=== PATIENT | female | born 1970 | race Caucasian/White ===

== ENCOUNTER 2021-07-09 08:19 | Outpatient (CLI) | payer MEDICARE, SELFPAY ==
--- NOTE | ~2021-07-09 | XR_ITS ---
EXAMINATION:XR cervical spine 4-5V DATE: 07/09/2021 08:44 INDICATION: Neck pain TECHNIQUE: AP, lateral, lateral swimmers and odontoid views of the cervical spine are provided. COMPARISON: None FINDINGS: Alignment is normal. There are changes of anterior fusion with interbody device placement f rom C4 through C6. There are changes of posterior fusion from C3 through C7. The odontoid is intact. No fracture is identified. The vertebral body heights are maintained. There is mild loss of intervert ebral disc space height at C3-4 and C6-7. Prevertebral soft tissues are normal. There is mild multile tri facet and uncovertebral joint osteoarthritis. IMPRESSION: 1. Changes of anterior and posterior fusion with mild cervical spondylosis. No acute findings identif ied. Reviewed, dictated and finalized at location A. ISH THINNER IMPRESSION: 1. Changes of anterior and posterior fusion with mild cervical spondylosis. No acute findings identified.
--- NOTE | ~2021-07-09 | XR_ITS ---
EXAMINATION: XR shoulder RT min 2V INDICATION: Right shoulder pain TECHNIQUE: Four views of the right shoulder are submitted. COMPARISON: None FINDINGS: Normal alignment. No fracture. There is moderate osteoarthritis of the acromioclavicular viral int and mild osteoarthritis of the glenohumeral joint. Partially imaged changes of cervical spinal fu eden are noted. Soft tissues are unremarkable. IMPRESSION: 1. Osteoarthritis without acute osseous abnormality. Reviewed, dictated and finalized at location A. TER MAN
--- NOTE | ~2021-07-09 | NM_ITS ---
EXAMINATION: NM vandana stress w perfusion DATE: 07/09/2021 10:58 INDICATION: Orthopnea TECHNIQUE: Rest images were obtained following intravenous administration of 9.6 mCi Tc99m tetrofosmi n (Myoview). The patient was infused intravenously with Lexiscan (Regadenoson). Then, 27.8 mCi Tc99m tetrofosmin (Myoview) was administered intravenously, and stress images were obtained. Data was recon structed into short axis and horizontal and vertical long axis SPECT images. Gated SPECT images were also obtained. COMPARISON: None. FINDINGS: There is no definite reversible or fixed perfusion abnormality to suggest ischemia or infar ction. There is normal left ventricular chamber size, wall motion and ejection fraction. Left ventr icular ejection fraction measures 66%. IMPRESSION: 1. Normal myocardial perfusion at rest and during stress. 2. Left ventricular ejection fraction measuring 66%. Reviewed, dictated and finalized at location A. CAL SURGICAL TECH
--- NOTE | 2021-07-09 08:25 | EST_ITS ---
Patient Info Name: Marixa Ghosh Age: 50 years : 1970 Gender: Female Ht: 63 in Wt: 215 lbs BSA: 2.13 m2 HR: 72 bpm BP: 106 / 73 mmHg Heart Rhythm: Sinus Rhythm Exam Date: 07/09/2021 9:42 AM Exam Location: [facility] Stress Patient Status: Outpatient Admit Date: 07/09/2021 Staff Ordering Physician: Elvia Beck Attending Provider: Mello Del Valle DO Exercise Technologist: Lexis Barboza CT Exercise Physician: Derrell Ndiaye DO Exam Type: CA stress vandana w NM Study Info Indications R06.01 - Orthopnea A regadenoson stress test was performed. Summary 1. 1. Negative lexiscan stress test for ischemic ST changes by ECG criteria. 2. 2. Stable hemodynamics throughout the test. 3. 3. Nuclear scan to follow and will be reported separately. Please correlate with it. 4. 4. Patient informed of the above results. Protocol: Lexiscan Stress ECG Details Stage: REST Duration (min): 1 min : 29 sec HR (bpm): 71 SBP (mmHg): 106 DBP (mmHg): 73 Stage: REST Duration (min): 13 min : 30 sec HR (bpm): 68 SBP (mmHg): 106 DBP (mmHg): 73 Stage: STAGE 1 Duration (min): 1 min : 0 sec HR (bpm): 77 SBP (mmHg): 107 DBP (mmHg): 66 Stage: RECOVERY Duration (min): 1 min : 0 sec HR (bpm): 84 SBP (mmHg): 107 DBP (mmHg): 66 Stage: RECOVERY Duration (min): 2 min : 0 sec HR (bpm): 85 SBP (mmHg): 107 DBP (mmHg): 66 Stage: RECOVERY Duration (min): 2 min : 57 sec HR (bpm): 82 SBP (mmHg): 104 DBP (mmHg): 66 Rest HR: 68 bpm Peak HR: 88 bpm Rest Sys BP: 106 mmHg Peak Sys BP: 107 mmHg Max Pred HR: 169 bpm % Max Pred HR: 52 % Target HR: 144 bpm Max RPP: 9,416 bpm*mmHg Termination Reason: Completed protocol Cardiac Symptoms: Shortness of breath Total Time: 1 min : 0 sec Rest [place] BP: 73 mmHg Peak [place] BP: 66 mmHg Total Dose: 0.4 mg Resting ECG Sinus rhythm, IRBBB, borderline T wave abnormality in ant/inf leads. Stress ECG No ST changes. Arrhythmias None. Report Signatures
[2021-07-09 12:11] LABS: Hemoglobin A1C 5.4 % (<5.7)
[2021-07-09 12:24] LABS: Alanine Aminotransferase 14 U/L (4-35); Albumin Level 4.4 g/dL (3.5-5.1); Alkaline Phosphatase 64 U/L (38-126); Anion Gap 5 mmol/L (8-16); Aspartate Amino Transferase 24 U/L (14-36); Bilirubin,Total 0.4 mg/dL (0.2-1.3); Blood Urea Nitrogen 13 mg/dL (7-17); Carbon Dioxide 26 mmol/L (22-30); Chloride 108 mmol/L (98-107); Cholesterol 214 mg/dL (0-200); Estimated Glomerular Filt Rate > 60; Glucose 105 mg/dL (65-110); HDL Direct 47 mg/dL; Potassium 4.1 mmol/L (3.4-5.0); Sodium 139 mmol/L (137-145); Triglycerides 167 mg/dL (<150)
[2021-07-09 12:35] LABS: LDL Cholesterol Direct 137 mg/dL
[2021-07-09 12:45] LABS: Vitamin D 25 Hydroxy 14.9 ng/mL
== END 2021-07-09 08:20 | disposition home or self-care (01) ==
PROVIDERS: Nurse Practitioner; PCP Internal Medicine; Visit Provider Internal Medicine
DX: E03.9 Hypothyroidism, unspecified (principal); E78.5 Hyperlipidemia, unspecified; R73.9 Hyperglycemia, unspecified; Z13.1 Encounter for screening for diabetes mellitus; R06.01 Orthopnea; Z13.21 Encounter for screening for nutritional disorder; Z98.1 Arthrodesis status; M47.892 Other spondylosis, cervical region; M19.011 Primary osteoarthritis, right shoulder
CPT/HCPCS: 36415; 72050; 73030; 78452; 80053; 80061; 82306; 83036; 84443; 93017; A9502; J2785

== ENCOUNTER 2021-08-19 00:08 | Day surgery (SDC) | payer MEDICARE, SELFPAY ==
[2021-08-11 13:02] VITALS: BMI 37.8
[2021-08-19 07:26] VITALS: BP 132/89; PULSE 94; RESP 17; O2SAT 96
[2021-08-19] MEDS: LACTATED RINGERS 1,000 ML 150 ML IV CONT (07:40)
--- NOTE | 2021-08-19 07:58 | WPDANESEPPF ---
Anes - Initial Pre Proc Eval Procedure: Operation Date: 08/19/21 08:30 Proposed Procedures p Colonoscopy - Javan Harvey MD Date/Time: 08/19/21 07:58 Surgeon: Javan Harvey MD Pre Op Diagnosis: melena Patient Data Age: 51 Gender: F Height: 1.6 m Weight: 93.8 kg Last Vital Signs Pulse 94 08/19/21 07:26 Resp 17 08/19/21 07:26 BP 132/89 08/19/21 07:26 Pulse Ox 96 08/19/21 07:26 Allergies Allergy/AdvReac Type Severity Reaction Status Date / Time No Known Allergies Allergy Verified 08/19/21 07:23 Home Medications Medication Instructions Recorded Confirmed Type alprazolam 0.25 mg tablet 0.25 mg PO DAILY PRN tablet 06/25/21 08/19/21 History buspirone 15 mg tablet 15 mg PO BID tablet 06/25/21 08/19/21 History fenofibrate 160 mg tablet 160 mg PO DAILY #30 tablet 06/25/21 08/19/21 Rx gabapentin 300 mg capsule 300 mg PO TID cap 06/25/21 08/19/21 History sertraline 100 mg tablet 100 mg PO DAILY tablet 06/25/21 08/19/21 History tizanidine 2 mg tablet 2 mg PO TID tablet 06/25/21 08/19/21 History trazodone 150 mg tablet 150 mg PO BID tablet 06/25/21 08/11/21 History levothyroxine 200 mcg tablet 200 mcg PO DAILY #60 tablet 07/10/21 08/19/21 Rx duloxetine 30 mg PO DAILY 08/11/21 08/19/21 History Patient hx anesthesia problems: none Family hx anesthesia problems: none Results Review: All pre-operative results and documents have been reviewed as part of the pre-operative evaluation. [facility] Past Medical History Medical History (Updated 06/25/21 @ 14:10 by RUDDY Farmer) Anxiety Headache Surgical History Surgical History (Updated 06/25/21 @ 13:43 by RUDDY Farmer) H/O neck surgery 2017 History of endometrial ablation 2011 History of excision of pilonidal cyst Hx of section 1999 Hx of cholecystectomy 1999 Family History Family History (Updated 06/25/21 @ 13:13 by Galilea Jones MA) Father Alcoh dep NEC/NOS, unspec Hypertension Cancer Mother Cancer Anxiety Thyroid disease Social History Social History (Updated 06/25/21 @ 13:08 by Galilea Jones MA) Social History: pt states she trying to quit smoking Smoking packs per day: 0.5 Smoking cigarettes per day: 10.0 Years smoked: 37 Smoking pack-years: 18.50 Smoking status: Current every day smoker Second hand tobacco smoke exposure: No Alcohol intake: never Alcohol use details: social Substance use: never Substance use type: marijuana Other substance usage details: medical marijuana Living arrangements: with family Gender identity (if verbalized by the patient): Female Spiritual care concerns: No Anes - Eval Final PreProcedure Day of Procedure 08/19/21 07:58 Patient weight: obese Heart: regular rate and rhythm Lungs: clear to auscultation Airway: Mallampati scale Neurological: alert and oriented Last oral intake: >/= 8 hours ASA classification: III Emergent: no Anesthetic plan: proceed Anesthesia type and monitoring: general GIVS and standard monitoring Results Review: All pre-operative results and documents have been reviewed as part of the pre-operative evaluation. Informed Consent: The patient's anesthetic plan and its attendant risks and benefits were discussed with the patient/family/POA. Questions were solicited and answers provided to the satisfaction of the patient/family/POA.
--- NOTE | 2021-08-19 08:06 | PM.HPGS ---
History of Present Illness History of Present Illness Consent: Risks, benefits, and alternatives have been discussed and questions answered. Patient agrees to proceed with procedure. Chief complaint: melena Narrative: Marixa Ghosh is a 51 year old female with constipation and intermittent blood in stool, had colonoscopy about 32 years ago for abdominal discomfort Review of Systems Constitutional: Constitutional: Denies headache(s) and Denies weakness Eyes: Eyes: Denies blurry vision ENT: Reports Normal hearing present, Denies headache(s) and Denies neck pain Cardiovascular: Cardiovascular: Denies chest pain and Denies dyspnea Respiratory: Respiratory: Denies dyspnea Gastrointestinal: Gastrointestinal: Reports no additional gastrointestinal complaints Genitourinary: Genitourinary: Denies dysuria Musculoskeletal: Musculoskeletal: Denies neck pain Integumentary/Breasts: Skin/Breast: Denies dry skin Neurologic: Reports Normal hearing present, Denies headache(s) and Denies weakness Psychiatric: Psychiatric: Denies anxiety Endocrine: Endocrine: Denies change in body appearance Hematologic/Lymphatic: Hematologic/Lymphatic: Denies easy bleeding Allergic/Immunologic: Allergic/Immunologic: Denies urticaria PMFSH Past Medical History Medical History (Updated 08/19/21 @ 08:07 by Javan Harvey MD) Anxiety Blood in stool Headache Surgical History Surgical History (Updated 06/25/21 @ 13:43 by Elvia Beck NP-C) H/O neck surgery 2017 History of endometrial ablation 2011 History of excision of pilonidal cyst Hx of section 1999 Hx of cholecystectomy 1999 Family History Family History (Updated 06/25/21 @ 13:13 by Galilea Jones MA) Father Alcoh dep NEC/NOS, unspec Hypertension Cancer Mother Cancer Anxiety Thyroid disease Social History Social History (Updated 06/25/21 @ 13:08 by Galilea Jones MA) Social History: pt states she trying to quit smoking Smoking packs per day: 0.5 Smoking cigarettes per day: 10.0 Years smoked: 37 Smoking pack-years: 18.50 Smoking status: Current every day smoker Second hand tobacco smoke exposure: No Alcohol intake: never Alcohol use details: social Substance use: never Substance use type: marijuana Other substance usage details: medical marijuana Living arrangements: with family Gender identity (if verbalized by the patient): Female Spiritual care concerns: No Meds Home Medications and Allergies Home Medications Medication Instructions Recorded Confirmed Type alprazolam 0.25 mg tablet 0.25 mg PO DAILY PRN tablet 06/25/21 08/19/21 History buspirone 15 mg tablet 15 mg PO BID tablet 06/25/21 08/19/21 History fenofibrate 160 mg tablet 160 mg PO DAILY #30 tablet 06/25/21 08/19/21 Rx gabapentin 300 mg capsule 300 mg PO TID cap 06/25/21 08/19/21 History sertraline 100 mg tablet 100 mg PO DAILY tablet 06/25/21 08/19/21 History tizanidine 2 mg tablet 2 mg PO TID tablet 06/25/21 08/19/21 History trazodone 150 mg tablet 150 mg PO BID tablet 06/25/21 08/11/21 History levothyroxine 200 mcg tablet 200 mcg PO DAILY #60 tablet 07/10/21 08/19/21 Rx duloxetine 30 mg PO DAILY 08/11/21 08/19/21 History Allergies Allergy/AdvReac Type Severity Reaction Status Date / Time No Known Allergies Allergy Verified 08/19/21 07:23 Vital Signs Vital Signs - 24 hr 08/19/21 07:26 Pulse Rate 94 Respiratory Rate 17 Blood Pressure 132/89 Pulse Oximetry 96 Exam Const: General: comfortable and no acute distress HENMT: General nose exam: Normal nares present Eyes: General: appearance normal, both eyes and all related structures Neck: Neck: no JVD Resp: Auscultation: clear to auscultation bilaterally Cardio: Rate: regular rate Rhythm: regular rhythm GI: Inspection: non-distended GI Palp: Yes Soft to palpation Skin: General skin exam: normal color Neur
[2021-08-19 08:24] VITALS: BP 97/49; PULSE 77; RESP 22; O2SAT 97
[2021-08-19 08:34] VITALS: BP 97/74; PULSE 71; RESP 20; O2SAT 97
[2021-08-19 08:44] VITALS: BP 113/80; PULSE 71; RESP 17; O2SAT 97
== END 2021-08-19 08:55 | disposition home or self-care (01) ==
PROVIDERS: PCP Internal Medicine; Visit Provider Internal Medicine Gastroenterology
PROC: 0DJD8ZZ Inspection of Lower Intestinal Tract, Via Natural or Artificial Opening Endoscopic (ICD-10-PCS; CPT 45378; principal; 2021-08-19 08:30)
DX: Z12.11 Encounter for screening for malignant neoplasm of colon (principal); K57.30 Diverticulosis of large intestine without perforation or abscess without bleeding; K64.8 Other hemorrhoids; F41.9 Anxiety disorder, unspecified; Z90.49 Acquired absence of other specified parts of digestive tract; F17.210 Nicotine dependence, cigarettes, uncomplicated; F12.90 Cannabis use, unspecified, uncomplicated; E03.9 Hypothyroidism, unspecified; K92.1 Melena; E66.9 Obesity, unspecified; Z68.36 Body mass index [BMI] 36.0-36.9, adult
CPT/HCPCS: G0121; J2704; J7120

== ENCOUNTER 2021-09-11 12:30 | Outpatient (RCR) | payer MEDICARE, SELFPAY ==
--- NOTE | 2021-07-23 13:54 | PTOPEVAL ---
PHYSICAL THERAPY INITIAL EVALUATION Thank you for referring Marixa Ghosh to [facility] The patient is scheduled to be seen for therapy? 2x/week for 4 weeks. Please review, sign, date and return this plan of care CARLOS. I agree with and certify that the following plan of care is medically necessary. Referring Physician Date Attending Provider: Elvia Beck, PACKAGING ENGINEER-C *PT Outpatient Evaluation Start: 07/23/21 Evaluation Information Diagnosis Cervicalgia Onset chronic Subjective Information Pt states she woke up randomly Query Text:As Reported By Patient/ one day in 2012 with a stiff Family neck and extreme neck pain, she went to the doctor who determined that she needed surgery. A surgery was done to place brackets and screws. This surgery was successful until around 2015 when she stated she woke up and knew something did not feel right. She went to the doctor again and they determined she needed surgery. They removed her brackets are replaced them with rods. She states the second surgery did not address her pain. She reports on average 1 headache a week. She states she spends all of her days in her recliner. Pt states her doctor wants to put her in a full trunk cast to allow her neck to heal. Pt states she has numbness down her L arm into her first 3 fingers. Pt states previous therapy has not worked in the past. Pt has had previous cortisone injections. Pt states the more she tries to use her neck, the more it hurts. After being awake and upright for a few hours, her head with start to shayla uncontrollably Pain Assessment Lower Neck Reported Pain Level 6 Pain Description Heavy,Numbness,Pressure Pain Radiation Left Arm Pain Frequency Chronic,Continuous Lowest Pain Intensity 5 Greatest Pain Intensity 7 Pain Aggravating Factors
--- NOTE | 2021-08-22 15:28 | PTOPEVAL ---
PHYSICAL THERAPY PROGRESS NOTE. Thank you for referring Marixa Ghosh to [facility].? The patient is scheduled to be seen for therapy? 2x/week for 4 weeks. Please review, sign, date and return this plan of care CARLOS. I agree with and certify that the following plan of care is medically necessary. Referring Physician Date Attending Provider: Elvia Beck, CLASSIFICATIONS OFFICER CC/CM-C Evaluation Information Diagnosis Cervicalgia Onset chronic Subjective Information Pt states her neck pain is Query Text:As Reported By Patient/ about the same. She also Family reports the frequency and intensity of her headaches has remained unchanged. Pt declines noticing any functional changes. She states her mental and cognitive ability to deal with and understand her pain has improved. Pain Assessment Self Report Pain Assessment Lower Neck Reported Pain Level 6 Greatest Pain Intensity 8 Cervical ROM Cervical Flexion (0-60) 14 active Cervical Extension (0-70) 16 active Cervical Lateral Flexion Right (0-50) 10 active Cervical Lateral Flexion Right (0-50) 20 passive Cervical Lateral Flexion Left (0-50) 16 active Cervical Lateral Flexion Left (0-50) 20 passive Cervical Rotation Right (0-90) 22 active Cervical Rotation Right (0-90) 30 passive Cervical Rotation Left (0-90) 25 active Cervical Rotation Left (0-90) 30 passive Cervical ROM 25% of Normal Cervical ROM Comments Muscle guard, mm spasm, and pain limit motion today. Lumbar ROM Lumbar Flexion Active [place] Lumbar Extension (0-40) 10 Lateral Flexion L lateral flexion 4 in above Query Text:Active Hands to: lateral knee joint line R lateral flexion 3 in above lateral knee joint line Lateral Rotation Right (0-45) 20 Lateral Rotation Left (0-45) 20 Lumbar ROM 25% of Normal Lumbar Comments Decreased thoracic/lumbar flexion forward flexion came from hip flexion Upper Extremity Range of Motion Right Shoulder Flexion - Active 78 Shoulder Abduction - Active 86 Left Shoulder Flexion - Active 92 Shoulder Abduction - Active 90 Upper Extremity Muscle Strength Testing Gross Upper Extremity Strength Comments B shoulders 4-/5 - can hold min resistance in available range, unequal AR
--- NOTE | 2021-08-27 09:18 | PCPTNOTE ---
Patient did not show up for scheduled appointment this date. Called the patient to follow up, she states her alarm did not go off this morning.
--- NOTE | 2021-09-03 14:26 | PCPTNOTE ---
Patient called & cancelled scheduled appointment this date due to sickness.
--- NOTE | 2021-09-15 14:35 | PCPTNOTE ---
Patient called & cancelled scheduled appointment this date due to not feeling well.
--- NOTE | 2021-09-19 12:28 | PCPTNOTE ---
Patient called & cancelled scheduled appointment this date due to having to go out of town. She states she will call back to reschedule.
--- NOTE | 2021-10-22 16:49 | PCPTNOTE ---
Attending Provider: Elvia Beck, RADHAC Patient:Marixa Ghosh Date of :1970 Patient called and cancelled her scheduled reevaluation for the third time. Patient has not returned for any further treatments since 09/11/2021, therefore she will be discharged at this time. Patient?s initial visit was on 07/23/2021 12:30 and she had a total of 12 visits. The goals have been partially met. Thank you for referring this patient to [facility]. Please review, sign, date and return this discharge summary CARLOS. I have been updated about the patient's current status and I agree with discharge from the above service at this time. Referring Physician Date
== END 2021-10-21 23:59 | disposition home or self-care (01) ==
LOC: ANHPT 12:30
PROVIDERS: PCP Internal Medicine; Visit Provider Nurse Practitioner
DX: M54.2 Cervicalgia (principal); G89.29 Other chronic pain
CPT/HCPCS: 97110; 97112; 97140; 97161; 97530

== ENCOUNTER 2021-11-26 09:50 | Outpatient (CLI) | payer MEDICARE, SELFPAY ==
[2021-11-26 11:39] LABS: Thyroid Stimulating Hormone < 0.015 uIU/mL (0.465-4.680)
== END 2021-11-26 09:51 | disposition home or self-care (01) ==
PROVIDERS: PCP Internal Medicine; Visit Provider Nurse Practitioner
DX: E03.9 Hypothyroidism, unspecified (principal)
CPT/HCPCS: 36415; 84443

== ENCOUNTER 2022-01-10 11:49 | Outpatient (CLI) | payer MEDICARE, SELFPAY ==
--- NOTE | ~2022-01-10 | MR_ITS ---
EXAMINATION: MR cervical spine wo con DATE: 01/10/2022 12:40 INDICATION: Neck pain. TECHNIQUE: Magnetic resonance imaging (MRI) of the cervical spine was performed without intravenous c ontrast. Sequences included sagittal T2-weighted FSE, sagittal T2-weighted FS FSE, sagittal T1-weight ed FSE, axial MERGE, and axial T2-weighted FSE. COMPARISON: Cervical spine MRI 04/09/2014, radiographs 07/09/2021 FINDINGS: Bone alignment is normal. There are changes of anterior fusion procedure from C4 to C6 with interbody bone graft and anterior plate and screws. There are changes of posterior fusion procedure from C3 to C7 with lateral mass screws from C3 to C5 and pedicle screws in C7. There are laminectomie s from C4 to C6. There is mildly decreased disc height at C3-C4 and C6-C7. The spinal cord signal int ensity is normal. The following disc levels are specifically discussed: C2-C3: The disc does not extend beyond the endplate margin. There is mild right uncovertebral joint o steoarthritis. There is mild bilateral facet joint osteoarthritis. There is mild right neural foramin al stenosis. There is no central canal stenosis. C3-C4: There is a central extrusion. There is mild bilateral uncovertebral joint osteoarthritis. Ther e is no facet joint hypertrophy. There is no neural foraminal stenosis. There is mild central canal s tenosis. C4-C5: There is no uncovertebral joint hypertrophy. There is no facet joint hypertrophy. There is no neural foraminal stenosis. There is no central canal stenosis. C5-C6: There is no uncovertebral joint hypertrophy. There is no facet joint hypertrophy. There is no neural foraminal stenosis. There is no central canal stenosis. C6-C7: The disc does not extend beyond the endplate margin. There is mild left uncovertebral joint hy pertrophy. There is mild right facet joint hypertrophy. There is mild bilateral neural foraminal sten osis. There is no central canal stenosis. C7-T1: The disc does not extend beyond the endplate margin. There is no uncovertebral joint osteoarth ritis. There is moderate bilateral facet joint osteoarthritis. There is mild bilateral neural foramin al stenosis. There is no central canal stenosis. IMPRESSION: 1. Mild cervical spondylosis. 2. Anterior fusion procedure from C4 to C6 and posterior fusion procedure from C3 to C7. Reviewed, dictated and finalized at location A.
== END 2022-01-10 11:50 | disposition home or self-care (01) ==
LOC: ANHIMG 12:01
PROVIDERS: PCP Internal Medicine; Visit Provider Internal Medicine
DX: M47.892 Other spondylosis, cervical region (principal); Z98.1 Arthrodesis status
CPT/HCPCS: 72141

== ENCOUNTER 2022-09-18 17:14 | Emergency (ER) | payer MEDICARE, SELFPAY ==
--- NOTE | ~2022-09-18 | XR_ITS ---
EXAM: XR hand RT min 3V DATE: 09/18/2022 17:53 HISTORY: dog bite, r/o fx/fb, BITE ACROSS METACARPAL AREA . COMPARISON: None available. FINDINGS: Normal mineralization. No fracture or dislocation. No lytic or blastic lesion. Joint space s are maintained. No erosion or periosteal change. Dorsal soft tissue irregularity. IMPRESSION: No acute osseous finding in the right hand. Reviewed, dictated and finalized at location K.
[2022-09-18 17:19] VITALS: BP 120/72; PULSE 99; RESP 20; TEMP 36.1; O2SAT 100
--- NOTE | 2022-09-18 17:43 | ED.ANIMALBIT ---
HPI - Animal Bite General Chief Complaint: Animal Bite Stated Complaint: dog bite Time Seen by Provider: 09/18/22 17:38 Source: patient Mode of arrival: ambulatory Limitations: no limitations History of Present Illness HPI narrative: Patient is a 52-year-old female who presents to the ED with report of a dog bite to her right hand. Patient reports she was bit by one of her female dogs today around 4 PM in her right hand. Her dogs are up-to-date on vaccines, rabies up-to-date. She sustained several lacerations and puncture wounds to her right dorsal hand. Complains of severe pain to her right hand. Maintains range of motion. Denies numbness or tingling. Patient unsure of tetanus status. Related Data Home Medications Medication Instructions Recorded Confirmed buspirone 15 mg tablet 15 mg PO BID 06/25/21 07/13/22 sertraline 100 mg tablet 100 mg PO DAILY 06/25/21 07/13/22 duloxetine 30 mg PO DAILY 08/11/21 07/13/22 duloxetine 60 mg capsule,delayed 60 mg PO DAILY 07/13/22 07/13/22 release Allergies Allergy/AdvReac Type Severity Reaction Status Date / Time No Known Allergies Allergy Verified 09/18/22 18:37 Review of Systems Review of Systems: CONSTITUTIONAL: Denies fever, chills, or sweats. SKIN: See HPI. MUSCULOSKELETAL: See HPI. NEUROLOGIC: Denies tingling, numbness, or weakness. All systems reviewed & are unremarkable except as noted in HPI and below PMFSH Past Medical History Medical History Anxiety Blood in stool Degenerative arthritis of cervical spine Depression Headache Hyperlipidemia Hypothyroidism Insomnia Peripheral neuropathy Surgical History Surgical History H/O neck surgery 2017 History of endometrial ablation 2011 History of excision of pilonidal cyst Hx of section 1999 Hx of cholecystectomy 1999 Family History Family History Father Alcoh dep NEC/NOS, unspec Hypertension Cancer Mother Cancer Anxiety Thyroid disease Social History Social History Social History: pt states she trying to quit smoking Smoking packs per day: 0.5 Smoking cigarettes per day: 10.0 Years smoked: 37 Smoking pack-years: 18.50 Smoking status: Current every day smoker (less than a ppd) Tobacco type: cigarettes Second hand tobacco smoke exposure: No Alcohol intake: never Substance use: current Substance use type: marijuana Other substance usage details: medical marijuana Living arrangements: with family Gender identity (if verbalized by the patient): Female Spiritual care concerns: No Exam Narrative: GENERAL: Uncomfortable appearing, obese with BMI of 37, non-toxic, in mild acute distress d/t pain. HEAD: Normocephalic, atraumatic. NECK: Supple. No adenopathy, no masses. RESPIRATORY: Airway patent, respirations nonlabored. Clear to auscultation bilaterally, no rales, rhonchi, wheezing. CARDIOVASCULAR: Regular rate and rhythm without murmurs, rubs, or gallops. Radial pulses 2+ and equal bilaterally. MUSCULOSKELETAL: Moves all extremities. Strength/ROM intact without gross deformities. Full ROM of R hand and fingers, but with discomfort of this. Patient able to flex, extend, abduct with right thumb, opposition intact. No evidence for APL/EPB injury. Lateral puncture wound to mid dorsal R hand, overlying area of mid 3rd metacarpal. Superficial lateral laceration just inferior to puncture wound. Larger 3cm laceration, relatively superficial, overlying proximal thumb/2nd metacarpal, dorsal surface of hand. No obvious deeper injuries. SKIN: Warm, dry, normal color. No rashes. NEURO: A&O X3. Speech clear. Cranial nerves II-XII grossly intact. No ataxic movements. PSYCHIATRIC: Anxious, tearful. Normal interaction
[2022-09-18] MEDS: TETANUS,DIPHTHERIA,AC PERTUSSIS ADULT (0.5 ML) BOOSTRIX IM (17:54)
[2022-09-18] MEDS: MORPHINE SULFATE (*CRX) 4 MG/ML INJ IV PUSH (18:14)
[2022-09-18] MEDS: ONDANSETRON INJ 4 MG/2 ML VIAL IV PUSH (18:14)
[2022-09-18] MEDS: SODIUM CHLORIDE 0.9% IV 1,000 ML 999 ML IV CONT (18:14)
[2022-09-18] MEDS: AMPICILLIN SULB 3 GM/NS 100 ML 3 GM/100 ML VIAL IVPB (18:17)
== END 2022-09-18 21:21 | disposition home or self-care (01) ==
PROVIDERS: Emergency Provider Physician Assistant
DX: S61.451A Open bite of right hand, initial encounter (principal); Z23 Encounter for immunization; E78.5 Hyperlipidemia, unspecified; E03.9 Hypothyroidism, unspecified; G62.9 Polyneuropathy, unspecified; F41.9 Anxiety disorder, unspecified; F17.210 Nicotine dependence, cigarettes, uncomplicated; Z90.49 Acquired absence of other specified parts of digestive tract; W54.0XXA Bitten by dog, initial encounter
CPT/HCPCS: 12002; 73130; 90471; 90715; 96365; 96375; 99284; J0295; J2270; J2405; J7030

== ENCOUNTER 2023-02-16 10:56 | Outpatient (CLI) | payer MEDICARE, SELFPAY ==
[2023-02-16 11:57] LABS: Hematocrit 39.7 % (37.0-47.0); Hemoglobin 13.8 g/dL (12.0-15.0); Mean Corpuscular HGB Conc 34.8 g/dl (32-36); Mean Corpuscular Hemoglobin 31.9 pg (26-34); Mean Corpuscular Volume 91.9 fl (80-100); Mean Platelet Volume 9.9 fl (7.4-10.4); Platelet Count Result 229 k/mm3 (150-375); Red Blood Count 4.32 M/mm3 (4.2-5.4); Red Cell Distribution Width 11.9 % (11.5-14.5); White Blood Count 6.3 K/mm3 (4.5-10.0)
[2023-02-16 12:09] LABS: Alanine Aminotransferase 16 U/L (6-35); Albumin Level 4.1 g/dL (3.5-5.1); Alkaline Phosphatase 93 U/L (38-126); Anion Gap 5 mmol/L (8-16); Aspartate Amino Transferase 17 U/L (14-36); Bilirubin,Total 0.4 mg/dL (0.2-1.3); Blood Urea Nitrogen 12 mg/dL (7-17); Calcium 8.7 mg/dL (8.4-10.2); Carbon Dioxide 28 mmol/L (22-30); Chloride 107 mmol/L (98-107); Cholesterol 189 mg/dL (0-200); Estimated Glomerular Filt Rate > 60; Glucose 92 mg/dL (65-110); HDL Direct 44 mg/dL; Sodium 140 mmol/L (137-145); Triglycerides 466 mg/dL (<150)
[2023-02-16 12:22] LABS: LDL Cholesterol Direct 82 mg/dL
[2023-02-16 12:41] LABS: Thyroid Stimulating Hormone 0.053 uIU/mL (0.465-4.680)
[2023-02-16 12:42] LABS: Free T4 Free Thyroxine 1.44 ng/mL (0.78-2.19)
== END 2023-02-16 10:57 | disposition home or self-care (01) ==
PROVIDERS: PCP Family Medicine; Visit Provider Family Medicine
DX: G47.00 Insomnia, unspecified (principal); E03.9 Hypothyroidism, unspecified; E78.5 Hyperlipidemia, unspecified
CPT/HCPCS: 36415; 80053; 80061; 84439; 84443; 85027

== ENCOUNTER 2023-06-03 10:57 | Outpatient (CLI) | payer MEDICARE, SELFPAY ==
--- NOTE | ~2023-06-03 | XR_ITS ---
XR thoracic spine 3V DATE: 06/03/2023 11:44 INDICATION: Neck pain. Previous surgery in 2017. TECHNIQUE: AP, lateral, swimmer views COMPARISON: None FINDINGS: Status post anterior and interbody spinal fusion at C4-6 and posterior spinal fusion at C3- 7. There is degenerative spurring throughout the thoracic spine. No fracture or dislocation or bone dest ruction is detected. The thoracic pedicles are intact. No paraspinal soft tissue thickening. IMPRESSION: Status post anterior and posterior cervical spine surgical fusion Degenerative spurring of the thoracic spine Reviewed, dictated and finalized at location L. VATING SUPERVISOR
--- NOTE | ~2023-06-03 | XR_ITS ---
EXAMINATION: XR hip BI 2V w AP pelvis DATE: 06/03/2023 11:43 INDICATION: Hip pain TECHNIQUE: AP view the pelvis and two views of each hip were obtained. COMPARISON: None. FINDINGS: Bone alignment is normal. There is no fracture. There is mild osteoarthritis of the hips. P hleboliths are noted in the pelvis. IMPRESSION: 1. Osteoarthritis of the hips. 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
--- NOTE | ~2023-06-03 | XR_ITS ---
XR lumbar spine 6V w bending DATE: 06/03/2023 11:43 INDICATION: Right low back pain. Postlaminectomy syndrome. TECHNIQUE: AP, lateral, coned lateral lumbosacral and bilateral oblique views COMPARISON: None FINDINGS: There is slight levoscoliosis. There is prominent degenerative spurring in the lower thoracic spine. The lumbar vertebrae are normally aligned. No spondylolysis or spondylolisthesis. There is severe degenerative disc disease with virtual obliteration of disc space and eburnation and degenerative spurring at L2-3. As mild degenerative disease at L1-2, L3-4. L4-5 and L5-S1 interspaces are well preserved. The sacroiliac joints are intact. Surgical clips, right upper quadrant, likely due to cholecystectomy. IMPRESSION: Severe degenerative disc disease at L2-3, mild degenerative disc disease at L1-2 and L3-4 Reviewed, dictated and finalized at location L. TRICIAN RESEARCH IMPRESSION: Severe degenerative disc disease at L2-3, mild degenerative disc di sease at L1-2 and L3-4
== END 2023-06-03 10:58 | disposition home or self-care (01) ==
PROVIDERS: PCP Family Medicine; Referring Provider Anesthesiology Pain Medicine; Visit Provider Family Medicine
DX: G47.00 Insomnia, unspecified (principal); M96.1 Postlaminectomy syndrome, not elsewhere classified; M47.893 Other spondylosis, cervicothoracic region; M54.6 Pain in thoracic spine; M16.0 Bilateral primary osteoarthritis of hip; Z98.1 Arthrodesis status
CPT/HCPCS: 36415; 72072; 72114; 73521; 84443

== ENCOUNTER 2023-06-28 10:40 | Outpatient (CLI) | payer MEDICARE, SELFPAY ==
--- NOTE | ~2023-06-28 | MM_ITS ---
EXAMINATION: MM screening kaden BI w lata HISTORY: Screening mammogram TECHNIQUE: Craniocaudal and mediolateral oblique 3-D tomosynthesis images were obtained and synthetic 2-D images were generated. CAD analysis was submitted and interpreted. COMPARISON: No prior mammogram is available for comparison at this institution. BREAST PARENCHYMAL COMPOSITION: There are scattered areas of fibroglandular density. FINDINGS: RIGHT BREAST: No suspicious mass, calcification, or architectural distortion are identified to sugges t malignancy. LEFT BREAST: An asymmetry is present in the middle third of the central breast on the craniocaudal vi ew. IMPRESSION: 1. Left breast asymmetry which may represent the patient's baseline however no comparison is currentl y available. 2. Comparison with prior mammograms is necessary. BI-RADS Category 0: Incomplete: Needs comparison with prior mammograms. Reviewed, dictated and finalized at location A. [employer] IMPRESSION: 1. Left breast asymmetry which may represent the patient's baseline however no comparison is currently available. 2. Comparison with prior mammograms is necessary. BI-RADS Category 0: Incomplete: Needs comparison with prior mammograms.
--- NOTE | ~2023-06-28 | MR_ITS ---
EXAMINATION: MR lumbar spine wo con DATE: 06/28/2023 12:00 INDICATION: Radiculopathy, lumbosacral region. Back pain. TECHNIQUE: Magnetic resonance imaging (MRI) of the lumbar spine was performed without intravenous con trast. Sequences included sagittal T2-weighted FSE, sagittal T2-weighted FS FSE, sagittal T1-weighted FSE, and axial T2-weighted FSE. COMPARISON: Lumbar spine radiographs 06/03/2023 FINDINGS: There is 4 degrees levocurvature of lumbar spine. There is 3 mm retrolisthesis of L2 on L3. Vertebral body heights are normal. There is severely decreased disc height at L2-L3 with endplate re modeling. The distal spinal cord signal intensity is normal. The conus medullaris is at T12-L1. The f ollowing disc levels are specifically discussed: L1-L2: There is a central protrusion. There is moderate bilateral facet joint osteoarthritis. There i s no neural foraminal stenosis. There is mild central canal stenosis. L2-L3: The disc is bulging and has an annular fissure. There is mild right and moderate left facet viral int osteoarthritis. There is moderate right and mild left neural foraminal stenosis. There is mild ce ntral canal stenosis. There is severe stenosis of right lateral recess. L3-L4: The disc is bulging. There is severe bilateral facet joint osteoarthritis. There is mild bilat eral neural foraminal stenosis. There is mild central canal stenosis. L4-L5: The disc does not extend beyond the endplate margin. There is severe bilateral facet joint ost eoarthritis. There is no neural foraminal stenosis. There is no central canal stenosis. L5-S1: There is a central protrusion. There is severe bilateral facet joint osteoarthritis. There is mild bilateral neural foraminal stenosis. There is mild central canal stenosis. IMPRESSION: 1. Severe lumbar spondylosis. Reviewed, dictated and finalized at location A. 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
== END 2023-06-28 10:41 | disposition home or self-care (01) ==
LOC: ANHIMG 10:43
PROVIDERS: PCP Family Medicine; Visit Provider Family Medicine
DX: Z12.31 Encounter for screening mammogram for malignant neoplasm of breast (principal); M47.27 Other spondylosis with radiculopathy, lumbosacral region; R92.8 Other abnormal and inconclusive findings on diagnostic imaging of breast
CPT/HCPCS: 72148; 77063; 77067

== ENCOUNTER 2023-07-06 06:42 | Day surgery (SDC) | payer MEDICARE, SELFPAY ==
--- NOTE | ~2023-07-06 | XR_ITS ---
EXAMINATION: XR fluoroscopy no charge INDICATION: Bilateral C2, C3, and C4 block TECHNIQUE: 333 intraoperative fluoroscopic images are submitted for review. Total fluoroscopic time w as 46.5 seconds. COMPARISON: None available FINDINGS: Fluoroscopic images demonstrate partially imaged anterior posterior fusion changes of the c ervical spine. There appear to be needles bilaterally in the C2-3, C3-4, and C4-5 facets. Please refe r to procedure note for full details. IMPRESSION: 1. Please refer to procedure note for full details. Reviewed, dictated and finalized at location L. GER RESEARCH
--- NOTE | 2023-07-06 06:17 | WPDHPUPDATE1 ---
History and Physical Update Update Date/Time: 07/06/23 06:17 History and Physical has been reviewed, including an updated exam of the patient. There are NO changes in the patient's condition. Risks, benefits, and alternatives have been discussed and questions answered. Patient agrees to proceed with procedure.
--- NOTE | 2023-07-06 06:18 | W.PM.PROC2 ---
Procedure Note - Detailed Date of Procedure 07/06/23 Pre-op Diagnosis cervical spondylosis, chronic cervicalgia Post-op Diagnosis Same Procedure Performed bilateral C2-3, C3, C4 diagnostic/prognostic medial branch blocks under fluoroscopic guidance with contrast control Surgeon David Dee MD Anesthesia Local Description of Procedure INFORMED CONSENT: Risks, benefits and alternatives to the procedure were discussed in detail with the patient who expressed explicit understanding and consent to proceed. Patient was informed verbally and in written form regarding the risks associated with the procedure including the low risk of serious infection, bleeding/bruising, allergic reaction, nerve or organ injury, paralysis, procedural site pain or discomfort, worsening pain and/or mobility, failure to treat and/or disfigurement. The patient expressed explicit understanding and consent to proceed. All materials required for the procedure were available prior to procedure start. Site and side was marked prior to procedure and confirmed in the presence of the patient. PROCEDURE IN DETAIL: The patient was brought to the procedural suite and placed in the left lateral decubitus position with head stabilized. Patient was made comfortable with use of pillows under the head/chest and between the knees and ankles. Skin overlying the injection site on the affected side(s) was prepared broadly with ChloraPrep applicator and draped in a sterile manner. Aseptic technique was used throughout. The endplates of the vertebral bodies at the site(s) of interest were aligned in the Lateral view. Image was optimized for visualization of the pars interarticularis at each target site. Local anesthesia was established by infiltration with approximately 5 mL of 1% lidocaine via a 1-1/2 inch 27- gauge needle. A 25-gauge 3.5 inch Quincke spinal needle was advanced until the needle tip contacted the periosteum of the pars interarticularis at the target site, right C2-3 peripheral branch. AP view was utilized to confirm the appropriate placement of the needle tip just lateral to the periosteum at the center point of the pars interarticularis. In the Lateral view, 0.25 mL of Omnipaque 300 contrast medium was injected after negative aspiration for CSF, blood or other bodily fluid, showing appropriate extra-articular spread of contrast without evidence of intravascular, foraminal or intrathecal placement. A 0.5 mL solution of 0.5% PF bupivacaine was injected after negative repeat aspiration. Appropriate spread of the injectate was confirmed with washout of previously injected contrast. No parasthesias were elicited. Needle was removed completely intact without difficulty. The same procedure was repeated for all additional intended levels/structures treated on the ipsilateral side, right C3, C4 medial branches with identical methodology modified to compensate for different location, with similar results and no evidence of complication. Patient tolerated this well. The same procedure was repeated for all additional intended levels/structures treated on the contralateral side, left C2-3, C3, C4 medial branches with identical methodology modified to compensate for different location, with similar results and no evidence of complication. Patient tolerated this well. Images were saved and documented in the patient chart. Patient's skin was cleaned and sterile bandage applied. The patient tolerated the procedure well. The patient was transported to the recovery area in stable condition where they were observed for an appropriate amount of time prior to discharge, without evidence of complication. Patient was instructed on the appropriate completion of a pain diary over the next 12-24 hours. The patient was instructed to avoid excessive activity for the next 48 hours, including climbing and frequent use of stairs. Showers only for 48 hours. They were instructed not to drive or operate heavy machinery fo
[2023-07-06 07:50] VITALS: BP 115/78; PULSE 91; RESP 20; TEMP 37.3; O2SAT 100
[2023-07-06 09:25] VITALS: BP 114/67; PULSE 80; RESP 9; O2SAT 98
[2023-07-06 09:35] VITALS: BP 105/55; PULSE 77; RESP 20; O2SAT 98
[2023-07-06 09:45] VITALS: BP 133/70; PULSE 73; RESP 15; O2SAT 97
[2023-07-06] MEDS: LIDOCAINE HCL 1% PF INJ 5 ML VIAL INFILTRATE (09:50)
[2023-07-06] MEDS: BUPivacaine HCL 0.5% 10 ML AMP INFILTRATE (09:50)
[2023-07-06 09:55] VITALS: BP 123/68; PULSE 75; RESP 20; O2SAT 100
== END 2023-07-06 10:22 | disposition home or self-care (01) ==
PROVIDERS: PCP Family Medicine; Visit Provider Anesthesiology Pain Medicine
PROC: (CPT 64490; principal; 2023-07-06 08:30)
DX: M47.812 Spondylosis without myelopathy or radiculopathy, cervical region (principal); M54.2 Cervicalgia
CPT/HCPCS: 64490 ×2; 99199

== ENCOUNTER 2023-07-29 11:14 | Outpatient (CLI) | payer MEDICARE, SELFPAY ==
--- NOTE | ~2023-07-29 | MM_ITS ---
EXAMINATION: MM diagnostic kaden LT w lata HISTORY: Asymmetries reported in middle third of central breast on screening craniocaudal view of Jun TECHNIQUE: Additional 3-D tomosynthesis images of the left breast were performed and synthetic 2-D im ages were generated. CAD analysis was submitted and interpreted. COMPARISON: June 28, 2023 bilateral screening mammogram FINDINGS: No suspicious mass, architectural distortion, malignant calcification, skin thickening or r etraction is evident. There is no mass or architectural distortion or other significant abnormality particularly at the are a of concern noted on the craniocaudal view of June 28, 2023. IMPRESSION: 1. No mammographic evidence of malignancy 2. Routine annual mammographic screening is recommended BI-RADS Category 1: Negative Reviewed, dictated and finalized at location A.
== END 2023-07-29 11:15 | disposition home or self-care (01) ==
PROVIDERS: PCP Family Medicine; Visit Provider Family Medicine
DX: R92.8 Other abnormal and inconclusive findings on diagnostic imaging of breast (principal)
CPT/HCPCS: 36415; 77061; 77065; 84443; G0279

== ENCOUNTER 2023-07-29 13:51 | Outpatient (CLI) | payer MEDICARE, SELFPAY | END 2023-07-29 13:52 | disposition home or self-care (01) | PROVIDERS: PCP Family Medicine; Visit Provider Family Medicine | DX: G47.00 Insomnia, unspecified (principal) | CPT/HCPCS: 36415; 84443 ==

== ENCOUNTER 2023-10-26 07:40 | Day surgery (SDC) | payer MEDICARE, SELFPAY ==
[2023-10-18 12:03] VITALS: BMI 35.5
[2023-10-26] VITALS (9 sets, daily range): BP systolic 92–119; BP diastolic 53–81; PULSE 62–92; RESP 12–16; TEMP 37.6; O2SAT 92–100
--- NOTE | ~2023-10-26 | XR_ITS ---
EXAMINATION: XR fluoroscopy no charge DATE: 10/26/2023 9:50 CDT INDICATION: TEMP PLAC THORALUMBAR EPI CATH . TECHNIQUE: 8 fluoroscopic images and one cine clip of the thoracal lumbar spine were obtained during temporary thoracolumbar epidural catheter placement, performed by David Dee MD. I was not pres ent during the procedure. Fluoroscopy exposure time was 12.4 seconds. Air Kerma 4.49 mGy. COMPARISON: None FINDINGS/IMPRESSION: Fluoroscopic documentation of temporary thoracolumbar epidural catheter placement. Please refer to th e operative note for complete procedural details . Reviewed, dictated and finalized at location K.
--- NOTE | 2023-10-26 09:31 | WPDHPUPDATE1 ---
History and Physical Update Update Date/Time: 10/26/23 09:31 History and Physical has been reviewed, including an updated exam of the patient. There are NO changes in the patient's condition. Risks, benefits, and alternatives have been discussed and questions answered. Patient agrees to proceed with procedure.
--- NOTE | 2023-10-26 09:38 | W.PM.PROC2 ---
Procedure Note - Detailed Date of Procedure 10/26/23 Pre-op Diagnosis Chronic Pain Syndrome, Postlaminectomy Syndrome Post-op Diagnosis Same Procedure Performed Rightward Lumbar Interlaminar Epidural Needle Placement at T12-L1 with Epidural Catheter Placement to T9-10 for Intermittent Epidural Bolus of Opioid Analgesic (Pump Trial) under Fluoroscopic Guidance with Contrast Control. Surgeon David Dee MD Anesthesia Local Description of Procedure INFORMED CONSENT: Risks, benefits and alternatives to the procedure were discussed in detail with the patient who expressed explicit understanding and consent to proceed. Patient was informed verbally and in written form regarding the risks associated with the procedure including the low risk of serious infection, bleeding/bruising, allergic reaction, nerve or organ injury, paralysis, procedural site pain or discomfort, worsening pain and/or mobility, failure to treat and/or disfigurement. The patient expressed explicit understanding and consent to proceed. All materials required for the procedure were available prior to procedure start. Site and side were marked prior to procedure and confirmed in the presence of the patient. PROCEDURE IN DETAIL: The patient was brought to the procedural suite and placed in the prone position. Patient was made comfortable with use of pillows under the head/chest, hips and ankles. Appropriate monitoring initiated. Skin overlying the injection site was prepared broadly with ChloraPrep applicator and draped in a sterile manner. Aseptic technique was employed throughout. The endplates of the vertebral body at the site of interest were aligned in the AP view. Slight caudal tilt and ipsilateral oblique angulation was utilized to optimize visualization of the targeted posterior intervertebral foramen (L1-2). Local anesthesia was established by infiltration with approximately 5 mL of 0.5% lidocaine via a 1-1/2 inch 27-gauge needle. An 18-gauge 4-inch Tuohy epidural needle was advanced intermittently until appropriate loss of resistance to air was identified via plastic loss of resistance syringe. Lateral view was used to confirm the appropriate positioning of the needle tip within the posterior epidural space. In the AP view, 2.0 mL of Omnipaque 300 contrast medium was injected after negative aspiration for CSF, blood or other bodily fluid, showing appropriate epidural spread of contrast without evidence of intravascular or intrathecal placement. A 20-gauge epidural catheter with was advanced to T9-10 disk space. Lateral view was utilized to confirm catheter placement in the posterior epidural space. After negative aspiration, 2.0 ml of the same contrast medium was injected showing appropriate epidurogram without evidence of intravascular or intrathecal placement. A 3.0ml test dose of 1.5% lidocaine with epinephrine was injected via the catheter and patient monitored for 2 minutes to assess for intrathecal placement. Blood Pressure, heart rate, lower extremity sensation and motor strength were tested and compared to baseline without significant change. 2 ml of a 1mg/ml aqueous solution of preservative free morphine was injected after negative repeat aspiration. Appropriate spread of the injectate was confirmed with washout of previously injected contrast. No parasthesias were elicited. Needle was removed over the catheter without difficulty. Images were saved and documented in the patient chart. Patient's skin was cleaned and sterile bandage applied. The patient tolerated the procedure well. The patient was transported to the recovery area in stable condition where they were observed and monitored (RR, HR, BP, O2 Sats, Pain level) for an appropriate amount of time prior to discharge, without evidence of complication. After approximately one hour, the patient was evaluated for neurologic deficit, pain relief and side effects with results as below. At the end of the same day trial, the catheter was
[2023-10-26] MEDS: LIDOCAINE HCL 1.5% 3 ML XX (09:58)
[2023-10-26] MEDS: LIDOCAINE HCL 1% PF INJ 5 ML VIAL INFILTRATE (10:08)
== END 2023-10-26 11:35 | disposition home or self-care (01) ==
PROVIDERS: PCP Family Medicine; Visit Provider Anesthesiology Pain Medicine
PROC: (CPT 62326; principal; 2023-10-26 09:00)
DX: G89.4 Chronic pain syndrome (principal); M96.1 Postlaminectomy syndrome, not elsewhere classified
CPT/HCPCS: 62326; 99199

== ENCOUNTER 2023-11-15 11:18 | Outpatient (CLI) | payer MEDICARE, SELFPAY ==
[2023-11-15 12:00] LABS: Hematocrit 42.5 % (37.0-47.0); Hemoglobin 14.1 g/dL (12.0-15.0); Mean Corpuscular HGB Conc 33.2 g/dl (32-36); Mean Corpuscular Hemoglobin 32.2 pg (26-34); Mean Platelet Volume 9.7 fl (7.4-10.4); Platelet Count Result 255 k/mm3 (150-375); Red Blood Count 4.38 M/mm3 (4.2-5.4); Red Cell Distribution Width 11.9 % (11.5-14.5); White Blood Count 7.1 K/mm3 (4.5-10.0)
[2023-11-15 12:51] LABS: Free T4 Free Thyroxine 1.03 ng/mL (0.78-2.19)
[2023-11-15 13:27] LABS: Alanine Aminotransferase 13 U/L (6-35); Albumin Level 4.2 g/dL (3.5-5.1); Alkaline Phosphatase 87 U/L (38-126); Anion Gap 5 mmol/L (4-12); Aspartate Amino Transferase 16 U/L (14-36); Bilirubin,Total 0.3 mg/dL (0.2-1.3); Blood Urea Nitrogen 15 mg/dL (7-17); Carbon Dioxide 25 mmol/L (22-30); Chloride 111 mmol/L (98-107); Estimated Glomerular Filt Rate 58; Glucose 94 mg/dL (65-110); Potassium 4.1 mmol/L (3.4-5.0); Sodium 141 mmol/L (137-145)
== END 2023-11-15 11:19 | disposition home or self-care (01) ==
PROVIDERS: PCP Family Medicine; Visit Provider Family Medicine
DX: E03.9 Hypothyroidism, unspecified (principal); E66.9 Obesity, unspecified; F32.A Depression, unspecified; F41.9 Anxiety disorder, unspecified; G47.00 Insomnia, unspecified; G62.9 Polyneuropathy, unspecified; G89.29 Other chronic pain; M54.2 Cervicalgia
CPT/HCPCS: 36415; 80053; 84439; 84443; 85027

== ENCOUNTER 2023-12-13 14:48 | Outpatient (CLI) | payer MEDICARE, SELFPAY ==
--- NOTE | ~2023-12-13 | US_ITS ---
EXAMINATION: US venous doppler LE RT DATE: 12/13/2023 15:30 INDICATION: Right lower limb pain, swelling, erythema and palpable lump or mass TECHNIQUE: Grayscale ultrasound images without and with compression and Doppler ultrasound images of the right lower extremity veins were obtained. COMPARISON: None. FINDINGS: The visualized portions of right common femoral vein, profunda (deep) femoral vein, femoral vein, pop liteal vein, peroneal trunk, posterior tibial veins, peroneal veins, gastrocnemius vein and greater s aphenous vein outflow are patent. IMPRESSION: 1. No deep venous thrombosis in the right lower limb. Reviewed, dictated and finalized at location A.
== END 2023-12-13 14:49 | disposition home or self-care (01) ==
LOC: ANHIMG 14:49
PROVIDERS: PCP Family Medicine; Visit Provider Nurse Practitioner Family
DX: S80.11XA Contusion of right lower leg, initial encounter (principal); I82.409 Acute embolism and thrombosis of unspecified deep veins of unspecified lower extremity; M79.89 Other specified soft tissue disorders; X58.XXXA Exposure to other specified factors, initial encounter
CPT/HCPCS: 93971

== ENCOUNTER 2023-12-21 15:11 | Outpatient (CLI) | payer MEDICARE, SELFPAY ==
--- NOTE | ~2023-12-21 | XR_ITS ---
EXAMINATION: XR chest 2V Exam Date/Time: 12/21/2023 16:30 CDT HISTORY: Z01.818 - Encounter for other preprocedural examination Comparison: None. RESULT: Lines, tubes, and devices: Partially visualized cervical fusion hardware. Lungs and pleura: Minimal linear scar/atelectasis in the peripheral left lower lung, otherwise clear . Cardiomediastinal silhouette: Stable. Other: No acute osseous or upper abdominal finding. IMPRESSION: No acute cardiopulmonary process. Reviewed, dictated and finalized at location K.
--- NOTE | 2023-12-21 15:51 | ECG_ITS ---
Test Date: 2023-12-21 16:00:36 Measurements Intervals [place] Rate: 95 P: 26 FL: 184 QRS: 52 QRSD: 75 T: 20 QT: 356 QTc: 449 Interpretive Statements SINUS RHYTHM WITH FREQUENT SUPRAVENTRICULAR PREMATURE COMPLEXES IN A BIGEMINAL PATTERN LOW QRS VOLTAGE IN PRECORDIAL LEADS [QRS DEFLECTION < 1.0 mV IN CHEST LEADS] SEPTAL MYOCARDIAL INFARCTION , OF INDETERMINATE AGE [40+ ms Q WAVE IN V1/V2] No previous ECG available for comparison Electronically Signed On 12-22-2023 17:02:59 CDT by Tessie Rey M.D.
[2023-12-21 16:02] LABS: Hematocrit 40.6 % (37.0-47.0); Hemoglobin 13.8 g/dL (12.0-15.0); Mean Corpuscular Hemoglobin 32.2 pg (26-34); Mean Corpuscular Volume 94.6 fl (80-100); Mean Platelet Volume 9.2 fl (7.4-10.4); Platelet Count Result 263 k/mm3 (150-375); Red Blood Count 4.29 M/mm3 (4.2-5.4); Red Cell Distribution Width 11.9 % (11.5-14.5); White Blood Count 9.1 K/mm3 (4.5-10.0)
[2023-12-21 16:15] LABS: Partial Thromboplastin Time 27.8 Seconds (22.3-36.8); Prothrombin Time 13.3 Seconds (11.1-14.7)
[2023-12-21 16:18] LABS: Anion Gap 7 mmol/L (4-12); Blood Urea Nitrogen 10 mg/dL (7-17); Carbon Dioxide 26 mmol/L (22-30); Chloride 105 mmol/L (98-107); Estimated Glomerular Filt Rate 58; Glucose 96 mg/dL (65-110); Potassium 4.1 mmol/L (3.4-5.0); Sodium 138 mmol/L (137-145)
== END 2023-12-21 15:12 | disposition home or self-care (01) ==
LOC: ANHLAB 15:30
PROVIDERS: PCP Family Medicine; Visit Provider Anesthesiology Pain Medicine
DX: D68.9 Coagulation defect, unspecified (principal); Z01.818 Encounter for other preprocedural examination
CPT/HCPCS: 36415; 71046; 80048; 85027; 85610; 85730; 93005

== ENCOUNTER 2023-12-28 05:53 | Day surgery (SDC) | payer MEDICARE, SELFPAY ==
[2023-12-08 08:38] VITALS: BMI 36.3
[2023-12-20 11:30] VITALS: BMI 35.9
[2023-12-28] VITALS (12 sets, daily range): BP systolic 86–145; BP diastolic 44–106; PULSE 75–90; RESP 14–20; TEMP 36.7–37.2; O2SAT 92–100; BMI 36.3
--- NOTE | ~2023-12-28 | XR_ITS ---
EXAMINATION: XR fluoroscopy no charge DATE: 12/28/2023 7:25 CDT INDICATION: PERMANENT PAIN PUMP PLACEMENT . TECHNIQUE: 6 fluoroscopic images and multiple cine clips of the thoracic spine were obtained during p ermanent pain pump placement, performed by David Dee MD. I was not present during the procedur e. Fluoroscopy exposure time was 452.0 seconds. Air Kerma 338.67 mGy. COMPARISON: None FINDINGS/IMPRESSION: Fluoroscopic documentation of permanent pain pump placement. Please refer to the operative note for c omplete procedural details. This examination was referred to radiation safety and occupational health manager, Dr. Marlon Guidry. Reviewed, dictated and finalized at location K.
--- NOTE | 2023-12-28 05:11 | PM.HPGS ---
History of Present Illness History of Present Illness Consent: Risks, benefits, and alternatives have been discussed and questions answered. Patient agrees to proceed with procedure. Chief complaint: Chronic Pain Syndrome, Multifocal OA, Dorsalgia Narrative: Marixa Ghosh is a 53 year old female with chronic, recalcitrant and disabling chronic pain secondary to degenerative osteoarthritis, lumbosacral spondylosis, cervical spondylosis and lumbar spinal stenosis with neurogenic claudication with failure to respond to aggressive conservative measures including PT, oral and topical analgesics, opioid and nonopioid analgesics, rest, time and activity/behavioral modification over the past 1-2 years and has had successful trial of bolus dose neuraxial opioids who presents for permanent placement of Medtronic SynchroMed III 20 mL intrathecal pain pump and catheter under fluoroscopic guidance. Review of Systems Review of Systems: Patient denies any new infectious, allergic, cardiopulmonary, neurologic or constitutional symptoms or changes in activity tolerance or exercise capacity including new or progressive SOB/EVANGELISTA, peripheral edema, productive cough, dysuria, nausea/vomiting, diarrhea, weight change, fevers/chills/night sweats, new or progressive neurologic deficit, cognitive or mood changes since last seen, except as documented in the HPI. All systems reviewed & are unremarkable except as noted in HPI and below PMFSH Past Medical History Medical History Anxiety Blood in stool Degenerative arthritis of cervical spine Depression Headache Hyperlipidemia Hypothyroidism Insomnia Peripheral neuropathy Surgical History Surgical History H/O neck surgery 2017 History of endometrial ablation 2011 History of excision of pilonidal cyst Hx of section 1999 Hx of cholecystectomy 1999 Family History Family History Father Alcoh dep NEC/NOS, unspec Hypertension Cancer Mother Cancer Anxiety Thyroid disease Social History Social History Social History: pt states she trying to quit smoking Smoking packs per day: 1 Smoking cigarettes per day: 20.0 Years smoked: 30 Smoking pack-years: 30.00 Smoking status: Current every day smoker Tobacco type: cigarettes Second hand tobacco smoke exposure: Yes Alcohol intake: current Substance use: current Substance use type: marijuana Other substance usage details: Daily Do You Feel Safe in your Home?: Yes Lack of Transportation: No Lack of Food: Never True Current Housing: I Have Housing Concerned About Future Housing: No Difficulty Paying Gas/Electric Bills: No Difficulty Paying for Meds: YES Currently Unemployed: No Education: High School Diploma/GED Difficulty w/ Childcare or Family Care: No Living arrangements: with family Gender identity (if verbalized by the patient): Female Spiritual care concerns: No Meds Home Medications and Allergies Home Medications Medication Instructions Recorded Confirmed Type buspirone 15 mg tablet 15 mg PO BID 06/25/21 12/20/23 History duloxetine 30 mg PO DAILY 08/11/21 12/20/23 History duloxetine 60 mg capsule,delayed 60 mg PO DAILY 07/13/22 12/20/23 History release bupropion HCl 300 mg 24 hr tablet, 300 mg PO QAM 02/16/23 12/20/23 History extended release quetiapine 300 mg tablet 300 mg PO QHS 02/16/23 12/20/23 History trazodone 50 mg tablet 50 mg PO QHS PRN Insomnia 04/20/23 12/08/23 History gabapentin 300 mg capsule 900 mg PO TID #810 caps 06/25/23 12/20/23 Rx diclofenac sodium 75 mg 75 mg PO BID #60 tabs 09/20/23 12/20/23 Rx tablet,delayed release cyclobenzaprine 10 mg tablet 10 mg PO TID muscle spasm 11/02/23 12/20/23 History topirama
--- NOTE | 2023-12-28 05:16 | WPDHPUPDATE1 ---
History and Physical Update Update Date/Time: 12/28/23 05:16 History and Physical has been reviewed, including an updated exam of the patient. There are NO changes in the patient's condition. Risks, benefits, and alternatives have been discussed and questions answered. Patient agrees to proceed with procedure.
--- NOTE | 2023-12-28 05:28 | W.PM.PROC2 ---
Procedure Note - Detailed Date of Procedure 12/28/23 Pre-op Diagnosis Chronic Pain Syndrome, Multifocal OA, Dorsalgia, Cervicalgia, Postlaminectomy syndrome Post-op Diagnosis Same Procedure Performed Permanent implantation of Medtronic SynchroMed III 20 mL intrathecal pain pump and percutaneous, tunneled Ascenda intrathecal catheter for chronic targeted drug delivery under fluoroscopic guidance. Surgeon David Dee MD Anesthesia General ([General anesthesia] in the [left lateral decubitus] position [via ETT] with local anesthetic infiltration. ) Description of Procedure INFORMED CONSENT, EDUCATION AND PREPARATION: Procedure was discussed in detail with the patient at a previous visit and at the time of surgery. The risks, benefits, and alternatives to the procedure, including doing nothing, were discussed in detail with the patient, who expressed explicit understanding and consent to proceed. Specific risks discussed with the patient included, but were not limited to the risk of serious local or systemic infection, major or minor bleeding/bruising, allergic reaction to medications or materials, inadvertent lung or other organ injury, inadvertent nerve or spinal cord injury resulting in, amongst other changes, increased pain, weakness, numbness or loss of bowel or bladder control, programming or technical error leading to unintentional overdose or underdose of medications resulting in sedation, respiratory depression, hypoxic brain injury and/or or major or minor withdrawal symptoms, device malfunction and inability to treat pain, device migration or malfunction resulting in the need for repeat or additional surgery, acute or chronic/persistent CSF leak and post-dural puncture headache, eye or dental injury, joint, nerve, spine or soft tissue injury/pain related to positioning, heart attack, hemorrhagic or ischemic stroke, seizure, coma and . Patient understands these risks and agrees that the opportunity for benefit outweighs the potential risk of harm. Informed Consent form was read, reviewed and signed. All pertinent questions were asked and answered to the patient's satisfaction. Surgical site was pre-treated with chlorhexidine wipes. All materials required for implantation were available and site and side of implant were marked prior to procedure start. Appropriate timeout was conducted prior to incision. PROCEDURE IN DETAIL: The patient indicated their completion of a 4% chlorhexidine shower at home and surgical site was pre-treated with chlorhexidine wipes in pre-operative holding. IV prophylactic antibiotics were initiated in holding. The patient was brought to the operative suite and placed in the supine position. ASA standard monitors were attached. General anesthesia was initiated via LMA without difficulty or event. The patient's eyes were protected. The patient was transitioned into the left lateral decubitus position. Joints were placed in neutral position, pressure points were padded and breast/genitals were evaluated and protected as appropriate. Skin overlying the planned incision sites were marked with sterile skin marker. Surgical site was prepared in the typical sterile fashion with 67% isopropyl alcohol pre-treatment and Chloraprep solution which was allowed to dry completely for greater than 3 minutes. The patient was then draped in a typical sterile fashion. Aseptic technique was utilized throughout. In the AP view relative to the patient, T12-L1 interspace was identified. Skin overlying the needle entry site was anesthetized with approximately 10 mL of a 1:1 admixture of 0.5% preservative-free bupivacaine with epinephrine and 2.0% preservative-free lidocaine with epinephrine via a 27-gauge needle after negative aspiration. Anesthesia was extended to the vertebral lamina at the level of interest through the injection of an additional 5 mL of the above local anesthetic admixture via a 22-gauge Quincke spinal needle after
--- NOTE | 2023-12-28 07:08 | WPDANESEPPF ---
Anes - Initial Pre Proc Eval Procedure: Operation Date: 12/28/23 07:30 Proposed Procedures p Permanent Placement Percutaneous Intrathecal Ascenda Catheter and Medtronic SynchroMed III Intrathecal Pain Pump under Fluoroscopic Guidance - David Dee MD Date/Time: 12/28/23 07:08 Surgeon: David Dee MD Pre Op Diagnosis: Chronic Pain Syndrome, Multifocal OA, Dorsalgia Patient Data Age: 53 Gender: F Height: 1.6 m Weight: 93 kg Last Vital Signs Temp 37.2 C 12/28/23 06:31 Pulse 84 12/28/23 06:31 Resp 20 12/28/23 06:31 BP 100/62 12/28/23 06:31 Pulse Ox 99 12/28/23 06:31 O2 Del Method Room Air 12/28/23 06:31 Allergies Allergy/AdvReac Type Severity Reaction Status Date / Time morphine Allergy Unknown Itching Verified 12/28/23 06:17 Home Medications Medication Instructions Recorded Confirmed Type buspirone 15 mg tablet 15 mg PO BID 06/25/21 12/28/23 History duloxetine 30 mg PO DAILY 08/11/21 12/28/23 History duloxetine 60 mg capsule,delayed 60 mg PO DAILY 07/13/22 12/28/23 History release bupropion HCl 300 mg 24 hr tablet, 300 mg PO QAM 02/16/23 12/28/23 History extended release quetiapine 300 mg tablet 300 mg PO QHS 02/16/23 12/28/23 History trazodone 50 mg tablet 50 mg PO QHS PRN Insomnia 04/20/23 12/28/23 History gabapentin 300 mg capsule 900 mg PO TID #810 caps 06/25/23 12/28/23 Rx diclofenac sodium 75 mg 75 mg PO BID #60 tabs 09/20/23 12/28/23 Rx tablet,delayed release cyclobenzaprine 10 mg tablet 10 mg PO TID muscle spasm 11/02/23 12/28/23 History topiramate 25 mg tablet 25 mg PO DAILY #90 tabs 11/02/23 12/28/23 Rx phentermine 37.5 mg capsule 37.5 mg PO DAILY #30 caps 11/30/23 12/28/23 Rx levothyroxine 150 mcg tablet 150 mcg PO DAILY 12/20/23 12/28/23 History (Synthroid) hydrocodone 5 mg-acetaminophen 325 1 tablet PO Q8H PRN pain 7 days 12/28/23 Rx mg tablet #20 tabs Patient hx anesthesia problems: none Family hx anesthesia problems: none Results Review: All pre-operative results and documents have been reviewed as part of the pre-operative evaluation. [facility] Past Medical History Medical History Anxiety Blood in stool Degenerative arthritis of cervical spine Depression Headache Hyperlipidemia Hypothyroidism Insomnia Peripheral neuropathy Surgical History Surgical History H/O neck surgery 2017 History of endometrial ablation 2011 History of excision of pilonidal cyst Hx of section 1999 Hx of cholecystectomy 1999 Family History Family History Father Alcoh dep NEC/NOS, unspec Hypertension Cancer Mother Cancer Anxiety Thyroid disease Social History Social History Social History: pt states she trying to quit smoking Smoking packs per day: 1 Smoking cigarettes per day: 20.0 Years smoked: 30 Smoking pack-years: 30.00 Smoking status: Current every day smoker Tobacco type: cigarettes Second hand tobacco smoke exposure: Yes Alcohol intake: current Substance use: current Substance use type: marijuana Other substance usage details: Daily Do You Feel Safe in your Home?: Yes Lack of Transportation: No Lack of Food: Never True Current Housing: I Have Housing Concerned About Future Housing: No Difficulty Paying Gas/Electric Bills: No Difficulty Paying for Meds: YES Currently Unemployed: No Education: High School Diploma/GED Difficulty w/ Childcare or Family Care: No Living arrangements: with family Gender identity (if verbalized by the patient): Female Spiritual care concerns: No Anes - Eval Final PreProcedure Day of Procedure 12/28/23 07:08 Patient weight: obese Heart: regular rate and rhythm Lungs: clear to auscultation Airway: [place]ampat
--- NOTE | 2023-12-28 07:09 | SUR.PREOP ---
[employer] REP IN PREOP ROOM WITH PT AND SPOUSE
[2023-12-28] MEDS: LACTATED RINGERS 1,000 ML 30 ML IV CONT ×2 (07:30→10:22)
[2023-12-28] MEDS: ceFAZolin SODIUM 2 GM/20 ML SW SYRINGE IV PUSH (07:32)
[2023-12-28] MEDS: IRRISEPT 450 ML IRRIGATION BOTTLE IRRIGATION (08:47)
--- NOTE | 2023-12-28 09:07 | SUR.OPER ---
Pharmacy RX# [id number] *ON IMPLANT LIST* Pain Medication placed in pain pump: PF Clonidine HCL 200mCg PF Bupivacaine HCI 5mg/ml PF Hydromorphone HCI 0.125mg/ml in 20ml PF NS
[2023-12-28] MEDS: VANCOMYCIN HCL 1,000 MG VIAL 1000 MG TOPICAL (09:22)
[2023-12-28] MEDS: BUPIVACAINE/EPINEPHRINE 0.5% 10 ML VIAL INFILTRATE (09:28)
[2023-12-28] MEDS: LIDOCAINE HCL 2% PF INJ 5 ML VIAL 10 ML INFILTRATE (09:28)
[2023-12-28] MEDS: fentaNYL CITRATE INJ (*CRX) 100 MCG/2 ML VIAL 25 MCG IV PUSH ×2 (10:24→10:51)
[2023-12-28] MEDS: oxyCODONE HCL (*CRX) 5 MG TAB IR PO (11:38)
--- NOTE | 2023-12-28 11:55 | SUR.PHASEII ---
Pt sleeping comfortably on stretcher- awakes when blood pressure machine starts- states pain a 8/9 and intolerable but then falls back asleep. patient request pain medication for way home- facility has 5mg oxycodone- pt states itching from last dose of Morphine--request the pain medication to be ordered. 1158-patient would like to dress and go home
== END 2023-12-28 12:39 | disposition home or self-care (01) ==
LOC: ASC 06:06
PROVIDERS: PCP Family Medicine; Visit Provider Anesthesiology Pain Medicine
PROC: (CPT 62362; principal; 2023-12-28 07:30)
DX: G89.4 Chronic pain syndrome (principal); M54.89 Other dorsalgia; M54.2 Cervicalgia; M96.1 Postlaminectomy syndrome, not elsewhere classified
CPT/HCPCS: 62362; 62350; 99199

== ENCOUNTER 2024-01-05 17:15 | Emergency (ER) | payer MEDICARE, SELFPAY ==
--- NOTE | 2024-01-05 17:55 | ED.EAR ---
HPI - Ear Problem General Stated complaint: Ear Pain Time Seen by Provider: 01/05/24 17:40 Source: patient Mode of arrival: ambulatory Limitations: no limitations History of Present Illness HPI Narrative: 53 yo F presents with c/o drainage from bilateral ears for 10 days. No pain. Muffled hearing L ear. Afebrile. Denies swimming. All systems reviewed and negative except as noted above. Related Data Home Medications Medication Instructions Recorded Confirmed buspirone 15 mg tablet 15 mg PO BID 06/25/21 12/28/23 duloxetine 30 mg PO DAILY 08/11/21 12/28/23 duloxetine 60 mg capsule,delayed 60 mg PO DAILY 07/13/22 12/28/23 release bupropion HCl 300 mg 24 hr tablet, 300 mg PO QAM 02/16/23 12/28/23 extended release quetiapine 300 mg tablet 300 mg PO QHS 02/16/23 12/28/23 trazodone 50 mg tablet 50 mg PO QHS PRN Insomnia 04/20/23 12/28/23 cyclobenzaprine 10 mg tablet 10 mg PO TID muscle spasm 11/02/23 12/28/23 levothyroxine 150 mcg tablet 150 mcg PO DAILY 12/20/23 12/28/23 (Synthroid) Allergies Allergy/AdvReac Type Severity Reaction Status Date / Time morphine Allergy Unknown Itching Verified 12/28/23 06:17 Review of Systems Review of Systems: All systems reviewed and negative except as noted below. bilateral ear drainage PMFSH Past Medical History Medical History Anxiety Blood in stool Degenerative arthritis of cervical spine Depression Headache Hyperlipidemia Hypothyroidism Insomnia Peripheral neuropathy Surgical History Surgical History H/O neck surgery 2017 History of endometrial ablation 2011 History of excision of pilonidal cyst Hx of section 1999 Hx of cholecystectomy 1999 Family History Family History Father Alcoh dep NEC/NOS, unspec Hypertension Cancer Mother Cancer Anxiety Thyroid disease Social History Social History Social History: pt states she trying to quit smoking Smoking packs per day: 1 Smoking cigarettes per day: 20.0 Years smoked: 30 Smoking pack-years: 30.00 Smoking status: Current every day smoker Tobacco type: cigarettes Second hand tobacco smoke exposure: Yes Alcohol intake: current Substance use: current Substance use type: marijuana Other substance usage details: Daily Do You Feel Safe in your Home?: Yes Lack of Transportation: No Lack of Food: Never True Current Housing: I Have Housing Concerned About Future Housing: No Difficulty Paying Gas/Electric Bills: No Difficulty Paying for Meds: YES Currently Unemployed: No Education: High School Diploma/GED Difficulty w/ Childcare or Family Care: No Living arrangements: with family Gender identity (if verbalized by the patient): Female Spiritual care concerns: No Comments past medical, family and social hx reviewed by [employer]PERVISOR Exam Const: General: cooperative, healthy appearing, comfortable, no acute distress, alert, awake and Physically active HENMT: Head: normal to inspection Ears: external ears normal, TM's normal bilaterally and Abnormal EAC present erythema bilateral and edema bilateral Resp: Effort & Inspection: normal respiratory effort and able to speak in complete sentences Cardio: Rate: regular rate Skin: General skin exam: normal color, no rashes or lesions noted, elasticity normal and turgor normal Neuro: General: oriented to person, oriented to place, oriented to time, patient oriented x3 and gait normal Extrem: General: normal to inspection Psych: Appearance: grossly normal and well kempt Course Course Level of Care: Express Care Visit Vital Signs Vital signs: reviewed Medical Decision Making MDM Narrative Medical decision making narrative: treating bilatearl otitis externa with abx
== END 2024-01-05 17:55 | disposition home or self-care (01) ==
PROVIDERS: Emergency Provider Nurse Practitioner Family; PCP Family Medicine
DX: H60.93 Unspecified otitis externa, bilateral (principal); F17.210 Nicotine dependence, cigarettes, uncomplicated; F12.90 Cannabis use, unspecified, uncomplicated; E78.5 Hyperlipidemia, unspecified; E03.9 Hypothyroidism, unspecified; G62.9 Polyneuropathy, unspecified; F41.9 Anxiety disorder, unspecified; F32.A Depression, unspecified
CPT/HCPCS: 99213; G0463

== ENCOUNTER 2024-11-23 07:46 | Outpatient (CLI) | payer MEDICARE, SELFPAY ==
--- NOTE | ~2024-11-23 | US_ITS ---
EXAMINATION TYPE: US breast RT limited COMPARISON: NONE REASON FOR STUDY: N64.59 - Other signs and symptoms in breast TECHNIQUE: Targeted sonographic evaluation of the right breast was performed. INTERPRETATION: There is an 8 mm anechoic cyst at the 9:00 position right breast, 7 cm from the nipple. There is an a dditional 8 mm cyst at the 9:00 position right breast, 5 cm the nipple. There is an additional 9 mm c yst at the 9:00 position right breast, 4 cm in the nipple. There is a septated cyst or cluster of cys ts at the 9:00 position right breast, 2 cm from nipple, measuring 7 mm in diameter. IMPRESSION: Multiple cystic masses as above, which is a septated cyst or cluster cysts. Consider six-month follow -up ultrasound to reassess given the mild complexity of this lesion. BI-RADS CATEGORY: BI-RADS 3: Probably benign. Six-month follow-up advised Reviewed, dictated and finalized at location . IMPRESSION: Multiple cystic masses as above, which is a septated cyst or cluster cysts. Con milk drying machine operator six-month follow-up ultrasound to reassess given the mild complexity of t his lesion. BI-RADS CATEGORY: BI-RADS 3: Probably benign. Six-month follow-up advised
--- OUTSIDE RECORDS SUMMARY | 2024-11-23 07:50 | XMS_ITS | Patient Health Record ---
Author Organization [facility] Payment Address [address] [place] [address] Care Team Providers Care Ux Designer Name Role Phone Luis Antonio Woods MD Primary Care Provider Terrell Brooks Unavailable [phone] Ellyn Castellanos Unavailable [phone] Allergies Allergen (clinical drug ingredient) Drug/Non Drug Allergy documented on EMR Reaction Allergy Type Onset Date Status morphine Morphine Unknown Drug Allergy Active Reason For Referral No Information Medications Medication SIG (Take, Route, Frequency, Duration) Notes Start Date End Date Status traZODone HCl 150 MG 1 tablet at bedtime Oral Once a day; Duration: 30 days rx send on 07/31/24 Active DULoxetine HCl 30 MG 1 capsule in the morning Orally Once a day; Duration: 30 days rx send on 07/31/24 Active buPROPion HCl ER (XL) 300 MG 1 tablet in the morning Orally Once a day; Duration: 30 days rx send on 07/31/24 Active Cyclobenzaprine HCl 10 MG TAKE 1 TABLET BY MOUTH THREE TIMES DAILY NEEDED FOR MUSCLE SPASM Oral; Duration: 30 Days Active Topiramate 25 MG 1 tablet Orally Once a day Active QUEtiapine Fumarate 400 MG 1 tablet every night Orally Once a day; Duration: 90 days rx send on 07/31/24 Active Diclofenac & Menthol-Camphor 75 & 3-3 MG & % as directed Combination Active DULoxetine HCl 60 MG 1 capsule Orally Once a day; Duration: 30 days rx send on 07/31/24 Active Synthroid 150 MCG 1 tablet in the morning on an empty stomach Orally Once a day Active busPIRone HCl 15 MG 1 tablet Oral Twice a day; Duration: 30 days rx send on 07/31/24 Active Gabapentin 300 MG 1 capsule Orally Once a day Active Immunizations Vaccine Route Administration Date Status Comme nts Pfizer Biontpic5 Covid-19 Vac cine 2nd dose Unknown 04/30/2021 Administered Elia Covid-19 Vaccine Unknown 07/21/2020 Administere d Social History Tobacco Use: Social History Observation Description Date Details (start date - stop date) Current Smoker NA - NA Sex Assigned At : Social History Observation Description Sex Assigned At Female Tobacco Use/Smoking Question Answer Notes Tobacco use: former smoker Tobacco Control (Standard) Question Answer Notes Tobacco use: Current smoker Section Notes: Tobacco use: Struggles With Nicotine Addiction Problems Problem Type SNOMED Code ICD Code Onset Dates Problem Status W/U Status Risk Notes Problem Severe recurrent major depression without psychotic features (17202087) Major depressive disorder, recurrent severe without 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) Active confirmed Problem Generalized anxiety disorder (12212308) Generalized anxiety disorder (F41.1) Active confirmed Problem Posttraumatic stress disorder (06122602) Post-traumatic stress disorder, chronic (F43.12) Active confirmed Problem Chronic pain syndrome (609458521) Chronic pain syndrome (G89.4) Active confirmed Vital Signs Heart Rate 73 /min 10/30/2024 Height-cm 160.02 cm 10/30/2024 Blood pressure diastolic 79 mm Hg 10/30/2024 Weight-kg 97.52 kg 10/30/2024 Height 63.00 in 10/30/2024 Blood pressure systolic 113 mm Hg 10/30/2024 Weight 215 lbs 10/30/2024 BMI 38.08 kg/m2 10/30/2024 Encounters Encounter Location Date Provider Diagnosis [facility] [employer] [address] [address] 12/01/2023 Terrell Krish Major depressive disorder, recurrent severe without psychotic features F33.2 ; Generalized anxiety disorder F41.1 ; Post-traumatic stress disorder, chronic F43.12 and Chronic pain syndrome G89.4 [facility] [employer] [address] [address] 02/03/2024 Terrell Krish Major depressive disorder, recurrent severe without psychotic features F33.2 ; Generalized anxiety disorder F41.1 ; Post-traumatic stress disorder, chronic F43.12 and Chronic pain syndrome G89.4 [facility] [employer] [address] [facility] [address] [place] [address] 05/03/2024 Terrell Krish Major depressive disorder, recurrent severe without psychotic features F33.2 ; Generalized anxiety disorder F41.1 ; Post-traumatic stress disorder, chronic F43.12 and Chronic pain syndrome G89.4 [facility] [employer] [address] [facility] [address] [place] [address] 07/31/2024 Terrell Krish Generalized anxiety disorder F41.1 ; Chronic pain syndrome G89.4 ; Major depressive disorder, recurrent severe without psychotic features F33.2 ; Post-traumatic stress disorder, chronic F43.12 ; Encounter for screening for depression Z13.31 ; Encounter for screening for cardiovascular disorders Z13.6 and Nicotine use Z72.0 [facility] [employer] [address] [facility] [address] [place] [address] 10/30/2024 Terrell Krish Major depressive disorder, recurrent severe without psychotic features F33.2 ; Chronic pain syndrome G89.4 ; Generalized anxiety disorder F41.1 ; Post-traumatic stress disorder, chronic F43.12 ; Encounter for screening for cardiovascular disorders Z13.6 ; Negative depression screening Z13.31 and Nicotine use Z72.0 [facility] [employer] [address] [address] 10/30/2024 Ellyn Jack Major depressive disorder, recurrent severe without psychotic features F33.2 ; Generalized anxiety disorder F41.1 and Post-traumatic stress disorder, chronic F43.12 Assessments Encounter Date Diagnosis (ICD Code) Assessment Notes Treatment Notes Treatment Clinical Notes Section Notes 05/03/2024 Major depressive disorder, recurrent severe without psychotic features (ICD-10 - F33.2) Depression and Anxiety - Plan: - Continue current medications: - Trazodone 150 mg - Bupropion XL - Duloxetine 30 mg and 60 mg - Quetiapine 400 mg at bedtime - Buspirone 15 mg twice a day - Change prescriptions to 90-day supply with 2 refills to potentially reduce costs. - Instruct patient to discuss with Addie about possible extra discount for 90-day prescriptions. - Encourage patient to maintain social support and engagement with family during holiday season. Family and Relationship Stress - Plan: - Encourage open communication between patient, Sharita Cm to address concerns and find solutions. - Recommend considering family therapy or counseling if tensions continue to escalate. Medication Management and Financial Concerns - Plan: - Explore options for prescription assistance programs or additional insurance coverage. - Encourage patient to discuss with pharmacy about potential discounts for 90-day prescriptions, particularly with [facility]. - Note: Patient receives two medications through a pump (specific medications unknown to patient). Follow-up - Plan: - Schedule follow-up appointment in 3 months to assess mental health status, medication management, and ongoing family or financial concerns. 05/03/2024 Generalized anxiety disorder (ICD-10 - F41.1) Depression and Anxiety - Plan: - Continue current medications: - Trazodone 150 mg - Bupropion XL - Duloxetine 30 mg and 60 mg - Quetiapine 400 mg at bedtime - Buspirone 15 mg twice a day - Change prescriptions to 90-day supply with 2 refills to potentially reduce costs. - Instruct patient to discuss with Addie about possible extra discount for 90-day prescriptions. - Encourage patient to maintain social support and engagement with family during holiday season. Family and Relationship Stress - Plan: - Encourage open communication between patient, Sharita Cm to address concerns and find solutions. - Recommend considering family therapy or counseling if tensions continue to escalate. Medication Management and Financial Concerns - Plan: - Explore options for prescription assistance programs or additional insurance coverage. - Encourage patient to discuss with pharmacy about potential discounts for 90-day prescriptions, particularly with [facility]. - Note: Patient receives two medications through a pump (specific medications unknown to patient). Follow-up - Plan: - Schedule follow-up appointment in 3 months to assess mental health status, medication management, and ongoing family or financial concerns. 07/31/2024 Generalized anxiety disorder (ICD-10 - F41.1) 10/30/2024 Major depressive disorder, recurrent severe without psychotic features (ICD-10 - F33.2) 10/30/2024 Generalized anxiety disorder (ICD-10 - F41.1) 10/30/2024 Major depressive disorder, recurrent severe without psychotic features (ICD-10 - F33.2) Patient experiences depression. Prescribed Bupropion XL for depression management. - Continue Bupropion XL 300 mg in the morning for depression. 10/30/2024 Chronic pain syndrome (ICD-10 - G89.4) 02/03/2024 Major depressive disorder, recurrent severe without psychotic features (ICD-10 - F33.2) Pain Management Post-Pain Pump Insertion - Assessment: Patient reports pain pump was inserted on the of last month and has been managing pain well. Patient mentions having her little terrell that goes everywhere with her. - Plan: No changes in the pain management plan are needed at this time. Postoperative Complications - Assessment: Patient experienced a series of complications, including upset stomach, dizziness, fever, and a protrusion in the back. Most issues have resolved with conservative management (icing, ibuprofen). The back protrusion was attributed to overstretching and overdoing activities. - Plan: Patient was advised to be cautious with movements to allow proper adherence of the leads. No further intervention is needed at this time, but the patient should continue to monitor for any new or worsening symptoms. Double Inner Ear Infection - Assessment: Patient was diagnosed with a double inner ear infection after experiencing liquid coming out of her ears. She initially feared it was related to spinal cord manipulation during the pain pump insertion. - Plan: No changes in the treatment plan are needed at this time. The patient should continue to monitor for any new or worsening symptoms and follow up with their primary care provider if needed. Depression - Assessment: Patient is currently on bupropion 300 mg once a day. - Plan: No changes in the medication are needed at this time. Continue to monitor the patient's mood and adjust the treatment plan as needed. Anxiety - Assessment: Patient is currently on duloxetine 90 mg and quetiapine 400 mg for anxiety management. - Plan: No changes in the medication are needed at this time. Continue to monitor the patient's anxiety levels and adjust the treatment plan as needed. Family Relationship Improvement - Assessment: Patient reports an improved relationship with her mother, mentioning they have been inseparable. The mother has shown gestures of affection, including gifting jewelry. - Plan: Encourage the patient to continue working on maintaining and strengthening family relationships. Follow-up - Plan: Schedule a follow-up appointment in three months. - Plan: Send prescriptions for bupropion 300 mg, duloxetine 90 mg, quetiapine 400 mg, and bosutinib 15 mg twice a day to [facility] for a 30-day supply with refills as needed. Patient prefers 30-day supply due to cost constraints and lack of prescription insurance. 12/01/2023 Major depressive disorder, recurrent severe without psychotic features (ICD-10 - F33.2) Anxiety and Stress Related to Family Dynamics - Assessment: Anxiety and stress related to family dynamics. - Plan: - Continue current medications: Bupropion XL 300 mg daily, Duloxetine 30 mg daily, and Duloxetine 60 mg daily. - Encourage setting boundaries and establishing a timeline for support with family members. - Consider family therapy or counseling to address communication and relationship issues. Depression - Assessment: Depression. - Plan: - Continue current medications: Bupropion XL 300 mg daily, Duloxetine 30 mg daily, and Duloxetine 60 mg daily. - Monitor for any changes in mood or worsening of depressive symptoms. - Encourage regular follow-up appointments to assess the effectiveness of the treatment plan. Insomnia - Assessment: Insomnia. - Plan: - Continue current medication: Trazodone 100 mg at night. - Encourage good sleep hygiene practices, such as maintaining a consistent sleep schedule and creating a relaxing bedtime routine. - Reassess the need for medication adjustments during follow-up appointments. Pain Management - Assessment: Pain management. - Plan: - Continue current medication: Baclofen 15 mg three times a day. - Encourage the patient to avoid lifting heavy objects, such as the baby, to prevent exacerbation of pain. - Consider referral to a physical therapist for pain management strategies and exercises. Elevated Blood Pressure - Assessment: Elevated blood pressure. - Plan: - Recommend discussing elevated blood pressure with the primary care physician. - Encourage regular monitoring of blood pressure and adherence to any prescribed medications. - Advise on lifestyle modifications, such as a healthy diet, regular exercise, and stress management techniques. Follow-up Appointment - Plan: Schedule a follow-up appointment in 1-2 months to monitor the patient's progress and reassess the treatment plan as needed. 12/01/2023 Generalized anxiety disorder (ICD-10 - F41.1) Anxiety and Stress Related to Family Dynamics - Assessment: Anxiety and stress related to family dynamics. - Plan: - Continue current medications: Bupropion XL 300 mg daily, Duloxetine 30 mg daily, and Duloxetine 60 mg daily. - Encourage setting boundaries and establishing a timeline for support with family members. - Consider family therapy or counseling to address communication and relationship issues. Depression - Assessment: Depression. - Plan: - Continue current medications: Bupropion XL 300 mg daily, Duloxetine 30 mg daily, and Duloxetine 60 mg daily. - Monitor for any changes in mood or worsening of depressive symptoms. - Encourage regular follow-up appointments to assess the effectiveness of the treatment plan. Insomnia - Assessment: Insomnia. - Plan: - Continue current medication: Trazodone 100 mg at night. - Encourage good sleep hygiene practices, such as maintaining a consistent sleep schedule and creating a relaxing bedtime routine. - Reassess the need for medication adjustments during follow-up appointments. Pain Management - Assessment: Pain management. - Plan: - Continue current medication: Baclofen 15 mg three times a day. - Encourage the patient to avoid lifting heavy objects, such as the baby, to prevent exacerbation of pain. - Consider referral to a physical therapist for pain management strategies and exercises. Elevated Blood Pressure - Assessment: Elevated blood pressure. - Plan: - Recommend discussing elevated blood pressure with the primary care physician. - Encourage regular monitoring of blood pressure and adherence to any prescribed medications. - Advise on lifestyle modifications, such as a healthy diet, regular exercise, and stress management techniques. Follow-up Appointment - Plan: Schedule a follow-up appointment in 1-2 months to monitor the patient's progress and reassess the treatment plan as needed. 02/03/2024 Generalized anxiety disorder (ICD-10 - F41.1) Pain Management Post-Pain Pump Insertion - Assessment: Patient reports pain pump was inserted on the of last month and has been managing pain well. Patient mentions having her little terrell that goes everywhere with her. - Plan: No changes in the pain management plan are needed at this time. Postoperative Complications - Assessment: Patient experienced a series of complications, including upset stomach, dizziness, fever, and a protrusion in the back. Most issues have resolved with conservative management (icing, ibuprofen). The back protrusion was attributed to overstretching and overdoing activities. - Plan: Patient was advised to be cautious with movements to allow proper adherence of the leads. No further intervention is needed at this time, but the patient should continue to monitor for any new or worsening symptoms. Double Inner Ear Infection - Assessment: Patient was diagnosed with a double inner ear infection after experiencing liquid coming out of her ears. She initially feared it was related to spinal cord manipulation during the pain pump insertion. - Plan: No changes in the treatment plan are needed at this time. The patient should continue to monitor for any new or worsening symptoms and follow up with their primary care provider if needed. Depression - Assessment: Patient is currently on bupropion 300 mg once a day. - Plan: No changes in the medication are needed at this time. Continue to monitor the patient's mood and adjust the treatment plan as needed. Anxiety - Assessment: Patient is currently on duloxetine 90 mg and quetiapine 400 mg for anxiety management. - Plan: No changes in the medication are needed at this time. Continue to monitor the patient's anxiety levels and adjust the treatment plan as needed. Family Relationship Improvement - Assessment: Patient reports an improved relationship with her mother, mentioning they have been inseparable. The mother has shown gestures of affection, including gifting jewelry. - Plan: Encourage the patient to continue working on maintaining and strengthening family relationships. Follow-up - Plan: Schedule a follow-up appointment in three months. - Plan: Send prescriptions for bupropion 300 mg, duloxetine 90 mg, quetiapine 400 mg, and bosutinib 15 mg twice a day to [facility] pharmacy for a 30-day supply with refills as needed. Patient prefers 30-day supply due to cost constraints and lack of prescription insurance. 10/30/2024 Generalized anxiety disorder (ICD-10 - F41.1) Patient experiences anxiety. Prescribed Buspar for anxiety management. - Continue Buspar 15 mg twice a day for anxiety. 10/30/2024 Post-traumatic stress disorder, chronic (ICD-10 - F43.12) 07/31/2024 Chronic pain syndrome (ICD-10 - G89.4) 05/03/2024 Post-traumatic stress disorder, chronic (ICD-10 - F43.12) Depression and Anxiety - Plan: - Continue current medications: - Trazodone 150 mg - Bupropion XL - Duloxetine 30 mg and 60 mg - Quetiapine 400 mg at bedtime - Buspirone 15 mg twice a day - Change prescriptions to 90-day supply with 2 refills to potentially reduce costs. - Instruct patient to discuss with Addie about possible extra discount for 90-day prescriptions. - Encourage patient to maintain social support and engagement with family during holiday season. Family and Relationship Stress - Plan: - Encourage open communication between patient, Tio, and Jovita to address concerns and find solutions. - Recommend considering family therapy or counseling if tensions continue to escalate. Medication Management and Financial Concerns - Plan: - Explore options for prescription assistance programs or additional insurance coverage. - Encourage patient to discuss with pharmacy about potential discounts for 90-day prescriptions, particularly with [facility]. - Note: Patient receives two medications through a pump (specific medications unknown to patient). Follow-up - Plan: - Schedule follow-up appointment in 3 months to assess mental health status, medication management, and ongoing family or financial concerns. 05/03/2024 Chronic pain syndrome (ICD-10 - G89.4) Depression and Anxiety - Plan: - Continue current medications: - Trazodone 150 mg - Bupropion XL - Duloxetine 30 mg and 60 mg - Quetiapine 400 mg at bedtime - Buspirone 15 mg twice a day - Change prescriptions to 90-day supply with 2 refills to potentially reduce costs. - Instruct patient to discuss with Addie about possible extra discount for 90-day prescriptions. - Encourage patient to maintain social support and engagement with family during holiday season. Family and Relationship Stress - Plan: - Encourage open communication between patient, Toi, and Jovita to address concerns and find solutions. - Recommend considering family therapy or counseling if tensions continue to escalate. Medication Management and Financial Concerns - Plan: - Explore options for prescription assistance programs or additional insurance coverage. - Encourage patient to discuss with pharmacy about potential discounts for 90-day prescriptions, particularly with [facility]. - Note: Patient receives two medications through a pump (specific medications unknown to patient). Follow-up - Plan: - Schedule follow-up appointment in 3 months to assess mental health status, medication management, and ongoing family or financial concerns. 07/31/2024 Major depressive disorder, recurrent severe without psychotic features (ICD-10 - F33.2) 07/31/2024 Post-traumatic stress disorder, chronic (ICD-10 - F43.12) 10/30/2024 Post-traumatic stress disorder, chronic (ICD-10 - F43.12) Patient experiences insomnia. Prescribed Trazodone for insomnia management. - Continue Trazodone 50 mg at bedtime for insomnia. 02/03/2024 Post-traumatic stress disorder, chronic (ICD-10 - F43.12) Pain Management Post-Pain Pump Insertion - Assessment: Patient reports pain pump was inserted on the 13th of last month and has been managing pain well. Patient mentions having her little terrell that goes everywhere with her. - Plan: No changes in the pain management plan are needed at this time. Postoperative Complications - Assessment: Patient experienced a series of complications, including upset stomach, dizziness, fever, and a protrusion in the back. Most issues have resolved with conservative management (icing, ibuprofen). The back protrusion was attributed to overstretching and overdoing activities. - Plan: Patient was advised to be cautious with movements to allow proper adherence of the leads. No further intervention is needed at this time, but the patient should continue to monitor for any new or worsening symptoms. Double Inner Ear Infection - Assessment: Patient was diagnosed with a double inner ear infection after experiencing liquid coming out of her ears. She initially feared it was related to spinal cord manipulation during the pain pump insertion. - Plan: No changes in the treatment plan are needed at this time. The patient should continue to monitor for any new or worsening symptoms and follow up with their primary care provider if needed. Depression - Assessment: Patient is currently on bupropion 300 mg once a day. - Plan: No changes in the medication are needed at this time. Continue to monitor the patient's mood and adjust the treatment plan as needed. Anxiety - Assessment: Patient is currently on duloxetine 90 mg and quetiapine 400 mg for anxiety management. - Plan: No changes in the medication are needed at this time. Continue to monitor the patient's anxiety levels and adjust the treatment plan as needed. Family Relationship Improvement - Assessment: Patient reports an improved relationship with her mother, mentioning they have been inseparable. The mother has shown gestures of affection, including gifting jewelry. - Plan: Encourage the patient to continue working on maintaining and strengthening family relationships. Follow-up - Plan: Schedule a follow-up appointment in three months. - Plan: Send prescriptions for bupropion 300 mg, duloxetine 90 mg, quetiapine 400 mg, and bosutinib 15 mg twice a day to [facility] for a 30-day supply with refills as needed. Patient prefers 30-day supply due to cost constraints and lack of prescription insurance. 12/01/2023 Post-traumatic stress disorder, chronic (ICD-10 - F43.12) Anxiety and Stress Related to Family Dynamics - Assessment: Anxiety and stress related to family dynamics. - Plan: - Continue current medications: Bupropion XL 300 mg daily, Duloxetine 30 mg daily, and Duloxetine 60 mg daily. - Encourage setting boundaries and establishing a timeline for support with family members. - Consider family therapy or counseling to address communication and relationship issues. Depression - Assessment: Depression. - Plan: - Continue current medications: Bupropion XL 300 mg daily, Duloxetine 30 mg daily, and Duloxetine 60 mg daily. - Monitor for any changes in mood or worsening of depressive symptoms. - Encourage regular follow-up appointments to assess the effectiveness of the treatment plan. Insomnia - Assessment: Insomnia. - Plan: - Continue current medication: Trazodone 100 mg at night. - Encourage good sleep hygiene practices, such as maintaining a consistent sleep schedule and creating a relaxing bedtime routine. - Reassess the need for medication adjustments during follow-up appointments. Pain Management - Assessment: Pain management. -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
--- OUTSIDE RECORDS SUMMARY | 2024-11-23 07:50 | XMS_ITS | Referral Summary ---
Author Organization [facility] Address [address] [place] [address] Care Team Providers Care Alternative Financing Specialist Name Role Phone Ronnell Rodriguez MD Primary Care Provider [phone] Isela Valenzuela PT Unavailable Unavailable Valentine Lozoya FLARING MACHINE OPERATOR Unavailable Unavailable Allergies Active Allergy Reactions Criticality Noted Date Comments No Known Allergies Other (See comments) Low Reaction: Medications levothyroxine (SYNTHROID, LEVOTHROID) 200 mcg tablet Take 200 mcg by mouth daily. 2 07/27/19 18 Active cyclobenzaprine (FLEXERIL) 10 mg tabletIndications :alternates dose with tizanadine Take 1 tablet by mouth 3 (three) times a day. 2 10/09/19 18 Active gabapentin (NEURONTIN) 300 mg capsule Take 2 capsules by mouth 3 (three) times a day. 2 10/09/19 18 Active sertraline (ZOLOFT) 100 mg tablet Take 100 mg by mouth 2 (two) times a day. 1 10/08/19 18 Active tiZANidine (ZANAFLEX) 2 mg tablet Take 2 mg by mouth 3 (three) times a day. Alternates with cyclobenzaprine 2 10/08/19 18 Active traZODone (DESYREL) 50 mg tablet Take 50 mg by mouth 3 (three) times a day. 10/26/19 15 Active buPROPion XL (WELLBUTRIN XL) 150 mg 24 hr tablet Take 150 mg by mouth 2 (two) times a day. Active busPIRone (BUSPAR) 5 mg tabletIndications :Generalized Anxiety Disorder Take 5 mg by mouth 2 (two) times a day. Active ALPRAZolam (XANAX) 0.25 mg tablet Take 0.25 mg by mouth 3 (three) times a day as needed for anxiety. Active oxyCODONE (ROXICODONE) 5 mg immediate release tabletIndications :Pain Take 1-2 tablets (5-10 mg total) by mouth every 4 (four) hours as needed for pain. 90 tablet 10/29/19 18 Active oxyCODONE ER (OxyCONTIN) 10 mg 12 hr abuse-deterrent tablet Take one tab twice a day for 5 days then then one tab once a day for 5 days then stop. 15 tablet 10/29/19 18 Active ondansetron ODT (ZOFRAN-ODT) 4 mg disintegrating tabletIndications :nausea and vomiting Take 1 tablet (4 mg total) by mouth every 8 (eight) hours as needed for nausea or vomiting. 50 tablet 10/29/19 18 Active senna-docusate (PERICOLACE) 8.6-50 mgIndications:con stipation Take 1 tablet by mouth 2 (two) times a day. 50 tablet 10/29/19 18 Active gabapentin (NEURONTIN) 300 mg capsule Take 1 capsule (300 mg total) by mouth 3 (three) times a day. 180 capsule 1 11/04/19 18 Active morphine ER (MS CONTIN) 15 mg 12 hr tablet Use 1 tab twice a day for 5 days, then use 1 tab once a day for 5 days then stop 15 tablet 11/04/19 18 Active methylPREDNISolon e (MEDROL, OSCAR,) 4 mg Dosepack follow package directions 21 tablet 12/16/19 18 Active celecoxib (CeleBREX) 200 mg capsule Take 1 capsule (200 mg total) by mouth 2 (two) times a day. 84 capsule 12/16/19 18 Active acetaminophen 500 mg capsuleIndication s:Pain Take 2 capsules (1,000 mg total) by mouth every 8 (eight) hours. 120 tablet 12/16/19 18 Active Active Problems Problem Noted Date Diagnosed Date s/p C3-7 laminectomy and fusion 10/26/2017 Left carpal tunnel syndrome 09/28/2017 Assessment & Plan (09/28/2017 3:58 PM CDT): It is possible the patient has acute carpal tunnel syndrome in the left wrist. She has been using a wrist control splint which is usually helpful. Cortisone injection was given as a test determine whether it localized to the wrist or not. If it is not at the wrist level concern would be for potential radiculopathy although she is not myelopathic she may have lateral recess stenosis associated with her disc issues in the cervical spine Cubital tunnel syndrome on left 09/28/2017 Assessment & Plan (09/28/2017 4:00 PM CDT): The EMG nerve conduction study were more consistent with cubital tunnel yet these are the most mild symptoms for this patient. She stop smoking which is young. She should avoid any direct pressure over the point of the elbow. She has persistent symptoms decompressive surgery may be helpful Cervical disc disorder with radiculopathy of cervicothoracic region 09/28/2017 Assessment & Plan (09/28/2017 4:02 PM CDT): Patient does have what appears to be a herniated disc at C3-4 with stenosis. This may be producing the radicular symptoms in the arm and would defer to Dr. Quinonez regarding the treatment Ulnar neuropathy at wrist, left 08/03/2017 Assessment & Plan (08/03/2017 3:27 PM CDT): Patient likely does have an underlying peripheral neuropathy. Her cessation of smoking may help. The EMG nerve conduction studies likely be abnormal following any nerve impairment to the upper extremity and she did get resolution of majority of her symptoms when she had original neck surgery. Unfortunately symptoms returned and she has a pseudoarthrosis. Would have patient use a wrist control splint to determine if the wrist is the location of the compression of the nerve are not Tobacco use disorder 07/17/2017 Cervical radiculopathy 07/17/2017 s/p C4-6 ACDF done at [place] on 04/201407/12/19 18 Pseudoarthrosis of cervical spine 07/12/2017 Local infection of wound 07/06/2014 Spinal stenosis of cervical region 05/04/2014 Hypothyroidism 09/30/2013 Overview (08/20/2016): Hypothyroidism Depression 09/30/2013 Overview (08/20/2016): Depression Anxiety 09/30/2013 Overview (08/20/2016): Anxiety Social History Tobacco Use Types Packs/Day Years Used Date Smoking Tobacco: Former Cigarettes Q uit: 06/23/2017 Smokeless Tobacco: Never Alcohol Use Standard Drinks/Week Comments No 0 (1 standard drink = 0.6 oz pur e alcohol) PHQ-2 Answer Date Recorded PHQ-2 Score 0 07/23/2018 Comments No Sex and Gender Information Value Date Recorded Sex Assigned at Not on file Legal Sex 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 Gender Identity Not on file Sexual Orientation Not on file Last Filed Vital Signs Vital Sign Reading Time Taken Comments Blood Pressure 120/80 02/07/2018 2:57 PM CDT Pulse 89 10/28/2017 11:49 AM CDT Temperature 36.9 C (98.5 F) 10/28/2017 11:49 AM CDT Respiratory Rate 18 10/28/2017 11:49 AM CDT Oxygen Saturation 100% 10/28/2017 11:49 AM CDT Inhaled Oxygen Concentration - - Weight 94.3 kg (208 lb) 02/07/2018 2:57 PM CDT Height 162.6 cm (5' 4) 02/07/2018 2:57 PM CDT Body Mass Index 35.7 02/07/2018 2:57 PM CDT Plan of Treatment Not on file Medical Devices Implanted Type Area Alpine Guide Device Identifier Shelf Expiration Date Model / Serial / Lot Depuy Spine Mountaineer 3.5mm 12mm Polyaxial Fix Angle Screw Spine - [id number] Implanted:Qty: 6 on 10/26/2017 by Scot Quinonez MD at [facility] Depuy Spine [id number] / / Depuy Spine Mountaineer 4mm 20mm Polyaxial Midline Screw Spine - [id number] Implanted:Qty: 2 on 10/26/2017 by Scot Quinonez MD at [facility] Depuy Spine [id number] / / Depuy Spine Mountaineer 3.5mm Inner Screw Spine Occipital Bone Nonsterile - [id number] Implanted:Qty: 8 [id number] / / Ford Spinal 65mm 3.5mm Mountaineer Occipitocervicothoracic - [id number] Implanted:Qty: 2 on 10/26/2017 by Scot Quinonez MD at [facility] Spine [id number] / / Insurance [facility] MEDICAID [facility] MEDICAID [place] [address] [place] [address] Advance Directives For more information, please contact: [phone] * Full Code (Latest Code Status on File) Date Activated Date Inactivated Comments 10/26/2017 3:20 PM 10/28/2017 8:00 PM Care Teams Alternative Financing Specialist Relationship Specialty Start Date End Date Ronnell Rodriguez MD PCP - General 06/16/17 Isela Valenzuela, PT Physical Therapist Physical Therapy 07/19/17 Valentine Lozoya, FLARING MACHINE OPERATOR Carpet Inspector Physical Therapy 07/23/17
--- OUTSIDE RECORDS SUMMARY | 2024-11-23 07:50 | XMS_ITS | Clinical Summary ---
Author Organization [facility] Address [address] [place] [address] Care Team Providers Care Jewelry Mechanic Name Role Phone Ronnell Rodriguez MD Primary Care Provider [phone] Isela Valenzuela PT Unavailable Unavailable Valentine Lozoya HOME SECURITY PROFESSIONAL Unavailable Unavailable Allergies Active Allergy Reactions Criticality [...] radiculopathy 07/17/2017 s/p C4-6 ACDF done at [place] on 04/201407/12/19 18 Pseudoarthrosis of cervical spine 07/12/2017 Local infection of wound 07/06/2014 Spinal stenosis of cervical region 05/04/2014 Hypothyroidism 09/30/2013 Overview (08/20/2016): Hypothyroidism Depression 09/30/2013 Overview (08/20/2016): Depression Anxiety 09/30/2013 Overview (08/20/2016): Anxiety Surgical History Surgery Date Site/Laterality Comments OTHER SURGICAL HISTORY 05/17/1999 - 05/16/2000 : SPINE SURGERY cervical CHOLECYSTECTOMY ENDOMETRIAL ABLATION PILONIDAL CYSTECTOMY Medical History Medical History Date Comments Hx Other Medical 1999 ; Outc ome: 36 week 6 lb(s) 14 oz Female Hx Other Medical 1999 ; Outc ome: 36 week 4 lb(s) 6 oz Male Hx Other Medical 1999 ; Outc ome: 36 week 7 lb(s) 1 oz Male Hx Other Medical Infertility Hx Hypothyroidism Migraines Neuropathy Depression Anxiety Bipolar disorder (HCC) Family History Medical History Relation Name Comments No Known Problems Brother No Known Problems Daughter Cancer Father cancer; Diabetes Father Diabetes mellit us; Hyperlipidemia Father Hyperlipidemi a; Hypertension Father Hypertension; Breast cancer Maternal Grandmother Cancer , breast; Coronary artery disease Maternal Grandmother Coronary artery disease; Other Maternal Grandmother breast problems; Hyperlipidemia Mother Hyperlipidemi a; Hypertension Mother Hypertension; Diabetes Other Diabetes mellit us; Breast cancer Paternal Grandmother Cancer , breast; No Known Problems Sister No Known Problems Son Relation Name Status Comments Brother Daughter Father Maternal Grandmother Alive Mother Other Paternal Grandmother Sister Son Social History Tobacco Use Types Packs/Day Years Used Date Smoking Tobacco: Former Cigarettes Q uit: 06/23/2017 Smokeless Tobacco: Never Alcohol Use Standard Drinks/Week Comments No 0 (1 standard drink = 0.6 oz pur e alcohol) PHQ-2 Answer Date Recorded PHQ-2 Score 0 07/23/2018 Comments No Sex and Gender Information Value Date Recorded Sex Assigned at Not on file Legal Sex Female 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 Gender Identity Not on file Sexual Orientation Not on file Obstetrics History Last Filed Vital Signs Vital Sign Reading [...] on file Medical Devices Implanted Type Area Contingents Supervisor Device Identifier Shelf Expiration Date Model / Serial / Lot Depuy Spine Mountaineer 3.5mm 12mm Polyaxial Fix Angle Screw Spine - [id number] Implanted:Qty: 6 on 10/26/2017 by Scot Quinonez MD at [facility] Depuy Spine [id number] / / Depuy Spine Mountaineer 4mm 20mm Polyaxial Midline Screw Spine - [id number] Implanted:Qty: 2 on 10/26/2017 by Scot Quinonez MD at [facility] Depuy Spine [id number] / / Depuy Spine Mountaineer 3.5mm Inner Screw Spine Occipital Bone Nonsterile - [id number] Implanted:Qty: 8 on 10/26/2017 by Scot Quinonez MD at [facility] Depuy Spine [id number] / / Ford Spinal 65mm 3.5mm Mountaineer Occipitocervicothoracic - [id number] Implanted:Qty: 2 on 10/26/2017 [facility] [id number] / / [place] [address] [facility] MEDICAID [place] [facility] MEDICAID [facility] Advance Directives For more information, please contact: [phone] * Full Code (Latest Code Status on File) Date Activated Date Inactivated Comments 10/26/2017 3:20 PM 10/28/2017 8:00 PM Care Teams Jewelry Mechanic Relationship Specialty Start Date End Date Ronnell Rodriguez MD PCP - General 06/16/17 Isela Valenzuela, PT Physical Therapist Physical Therapy 07/19/17 Valentine Lozoya, HOME SECURITY PROFESSIONAL Warehouse Freight Handler Physical Therapy 07/23/17
== END 2024-11-23 07:47 | disposition home or self-care (01) ==
PROVIDERS: PCP Family Medicine; Visit Provider Family Medicine
DX: N64.59 Other signs and symptoms in breast (principal)
CPT/HCPCS: 76642